=== PATIENT | female | born 1950 | race Caucasian/White ===

== ENCOUNTER 2017-08-19 09:35 | Inpatient (IN) | payer MEDICARE, BC ==
[2017-08-19] VITALS (15 sets, daily range): BP systolic 119–223; BP diastolic 43–93; PULSE 39–82; RESP 20–29; TEMP 98.6–98.9; O2SAT 89–96
[2017-08-19 10:07] LABS: AUTOMATED NEUTROPHIL # 10.8 TH/MM3 (1.8-7.7); BASOPHIL # 0.2 TH/MM3 (0-0.2); BASOPHIL % 1.1 % (0.0-2.0); EOSINOPHIL # 0.4 TH/MM3 (0-0.4); EOSINOPHIL % 2.3 % (0.0-4.0); HEMATOCRIT 39.6 % (35.0-46.0); HEMOGLOBIN 13.4 GM/DL (11.6-15.3); LYMPH % 19.3 % (9.0-44.0); MEAN CELL VOLUME 83.2 FL (80.0-100.0); MEAN CORPUSCULAR HEMOGLOBIN 28.3 PG (27.0-34.0); MEAN PLATELET VOLUME 8.5 FL (7.0-11.0); MONO % 6.2 % (0.0-8.0); NEUT % 71.1 % (16.0-70.0); PLATELET COUNT 241 TH/MM3 (150-450); RED BLOOD COUNT 4.76 MIL/MM3 (4.00-5.30); RED CELL DISTRIBUTION WIDTH 14.5 % (11.6-17.2); WHITE BLOOD COUNT 15.4 TH/MM3 (4.0-11.0)
--- NOTE | 2017-08-19 10:14 | RADRPT ---
EXAM DATE/TIME: 08/19/2017 10:01 [facility] COMPARISON: No previous studies available for comparison. INDICATIONS : Short of breath, cough MEDICAL HISTORY : Stroke. Chronic obstructive pulmonary disease. SURGICAL HISTORY : Cardiac valve replacement ENCOUNTER: Initial ACUITY: 1 week PAIN SCORE: 0/10 LOCATION: Bilateral chest FINDINGS: Bibasilar patchiness is noted consistent with atelectasis and/or infiltrates. Median sternotomy wires are noted status post cardiac surgery. The heart is minimally enlarged. CONCLUSION: Bibasilar patchiness consistent with atelectasis and/or infiltrates. Minimal cardiomegaly. Ronaldo Gutiérrez MD on August 19, 2017 at 10:10 Board Certified Radiologist. This report was verified electronically.
[2017-08-19 10:18] LABS: CHLORIDE 108 MEQ/L (98-107); SODIUM (NA) 142 MEQ/L (136-145)
[2017-08-19 10:21] LABS: CALCIUM 7.9 MG/DL (8.5-10.1)
[2017-08-19 10:22] LABS: ALBUMIN 3.2 GM/DL (3.4-5.0); BICARBONATE 24.4 MEQ/L (21.0-32.0); BLOOD UREA NITROGEN 21 MG/DL (7-18); GLUCOSE,RANDOM 117 MG/DL (74-106)
[2017-08-19 10:25] LABS: ALT (GPT) 62 U/L (10-53); AST (GOT) 81 U/L (15-37); CREATININE 0.99 MG/DL (0.50-1.00); GLOMERULAR FILTRATION RATE 56 ML/MIN (>89); PROTHROMBIN TIME - PATIENT 9.7 SEC (9.8-11.6)
[2017-08-19 10:26] LABS: TOTAL BILIRUBIN ADULT 0.4 MG/DL (0.2-1.0)
[2017-08-19 10:27] LABS: TOTAL PROTEIN 6.6 GM/DL (6.4-8.2)
[2017-08-19 10:28] LABS: ALKALINE PHOSPHATASE 79 U/L (45-117)
[2017-08-19 10:30] LABS: TROPONIN I 0.04 NG/ML (0.02-0.05)
[2017-08-19] MEDS ORDERED: LEVOFLOXACIN 500 MG PREMIX INJ 100 ML IV ONE (10:30)
[2017-08-19] MEDS ORDERED: methylPREDNISolone SOD SUCC 125 MG/2 ML VIAL IV PUSH ONE (10:30)
[2017-08-19] MEDS ORDERED: RESP: ALBUTEROL 2.5 MG/IPRATROPIUM 0.5 MG NEB (SCH) NEB ONE (10:30)
[2017-08-19 10:31] LABS: D-DIMER 1.81 MG/L FEU (0.00-0.50)
[2017-08-19] MEDS ORDERED: cloNIDine HCL 0.1 MG TAB PO ONE (10:45)
[2017-08-19] MEDS ORDERED: IOHEXOL 350 MG/ML 10 ML VIAL (for RAD DIAG) IVCONTRAST ONE (10:51)
--- NOTE | 2017-08-19 11:02 | RADRPT ---
EXAM DATE/TIME: 08/19/2017 10:34 [facility] COMPARISON: No previous studies available for comparison. INDICATIONS : Sudden onset shortness of breath. IV CONTRAST: 100 cc Omnipaque 350 (iohexol) IV RADIATION DOSE: 17.05 CTDIvol (mGy) MEDICAL HISTORY : Congestive hearrt failure. Hypertension. Bronchitis SURGICAL HISTORY : Heart bypass ENCOUNTER: Initial ACUITY: 1 day PAIN SCALE: 6/10 LOCATION: Bilateral chest TECHNIQUE: Volumetric scanning of the chest was performed using a pulmonary embolism protocol MIP images were re constructed. Using automated exposure control and adjustment of the mA and/or kV according to patien t size, radiation dose was kept as low as reasonably achievable to obtain optimal diagnostic quality images. DICOM format image data is available electronically for review and comparison. Follow-up recommendations for detected pulmonary nodules are based at a minimum on nodule size and pa tient risk factors according to Fleischner Society Guidelines. FINDINGS: PULMONARY ARTERIES: No filling defects are seen in the pulmonary arteries through the segmental level. LUNGS: Scattered tiny noncalcified nodular densities are noted to bilaterally consistent with true pulmonary nodules or reticulonodular infiltrates. The largest nodules noted on the right and measures 7 mm. Sc attered throughout it changes are noted bilaterally. Bibasilar compressive atelectasis is noted There is no pneumothorax . PLEURAE: Small bilateral pleural effusions are noted. MEDIASTINUM: There is good visualization of the great vessels of the middle mediastinum. No evidence of mediastin al or hilar adenopathy/mass. Cardiomegaly and coronary artery calcifications are noted. MUSCULOSKELETAL: Within normal limits for patient age. MISCELLANEOUS: The visualized upper abdominal organs demonstrate no acute abnormality. CONCLUSION: 1. No evidence of pulmonary embolism. 2. Scattered tiny noncalcified pulmonary nodules ranging in size from 3-7 mm suggestive of true pulmo nary nodules or reticulonodular infiltrates. Clinical correlation is recommended. 3. Small bilateral pleural effusions with adjacent compressive atelectasis. 4. Cardiomegaly and coronary artery calcifications. Ronaldo Gutiérrez MD on August 19, 2017 at 10:53 Board Certified Radiologist. This report was verified electronically.
[2017-08-19] MEDS ORDERED: FUROSEMIDE 20 MG/2 ML VIAL IV PUSH ONE (11:15)
--- NOTE | 2017-08-19 11:31 | PD ---
HPI Chief Complaint: Respiratory Distress Time Seen by Provider: 09:57 Travel History International Travel<30 days: No Contact w/Intl Traveler<30days: No Traveled to known affect area: No History of Present Illness HPI Patient presents for sudden onset of shortness of breath. Recently treated for bronchitis with a Z-Elias. States that in the last 1-2 weeks she has increased swelling in the right leg. Reports decreased urinary output. History of CHF, anxiety, COPD, hypertension and hypothyroidism. Denies nausea vomiting diarrhea or fever. No new rashes. History of valve replacement. Initial O2 sat of 85% on room air. PFSH Past Medical History AAA: Yes Anxiety: Yes Depression: Yes COPD: Yes Cerebrovascular Accident: Yes Deep Vein Thrombosis: Yes Hypertension: Yes Medical other: Yes (RHEUMATIC FEVER A CHILD, STREP, SEPSIS ) Thyroid Disease: Yes (GRAVES) Tetanus Vaccination: > 5 Years Influenza Vaccination: Yes ?: Not Menopausal: Yes Past Surgical History Abdominal Aneurysm Repair: Yes Abdominal Surgery: Yes (PARTIAL INTESTINE REMOVED) Appendectomy: Yes Cardiac Surgery: Yes ( BOVINE VALVE, BILATERAL FEMORAL ARTERY, ) Cholecystectomy: Yes Thoracic Surgery: Yes (AAA REPAIR) Social History Alcohol Use: Yes (RARELY) Tobacco Use: No Substance Use: No Allergies-Medications (Allergen,Severity, Reaction): Coded Allergies: Penicillins (Verified Allergy, Intermediate, 08/19/17) erythromycin base (Verified Allergy, Intermediate, 08/19/17) Review of Systems General / Constitutional: No: Fever Eyes: No: Visual changes HENT: No: Headaches Cardiovascular: No: Chest Pain or Discomfort Respiratory: Positive: Shortness of Breath Gastrointestinal: No: Abdominal Pain Genitourinary: No: Dysuria Musculoskeletal: No: Pain Skin: No Rash Neurologic: No: Weakness Psychiatric: No: Depression Endocrine: No: Polydipsia Hematologic/Lymphatic: No: Easy Bruising Physical Exam Narrative GENERAL: Well-nourished, well-developed patient. SKIN: Focused skin assessment warm/dry. HEAD: Normocephalic. EYES: No scleral icterus. No injection or drainage. NECK: Supple, trachea midline. No JVD or lymphadenopathy. CARDIOVASCULAR: Regular rate and rhythm without murmurs, gallops, or rubs. RESPIRATORY: Coarse crackles bilateral bases GASTROINTESTINAL: Abdomen soft, non-tender, nondistended. MUSCULOSKELETAL: No cyanosis, or edema. BACK: Nontender without obvious deformity. No CVA tenderness. Data Data Last Documented VS Vital Signs Date Time Temp Pulse Resp B/P (MAP) Pulse Ox O2 Delivery O2 Flow Rate FiO2 08/19/17 12:23 41 20 156/75 (102) 96 Nasal Cannula 3.00 08/19/17 09:42 98.6 Orders Orders Complete Blood Count With Diff (08/19/17 09:57) Comprehensive Metabolic Panel (08/19/17 09:57) B-Type Natriuretic Peptide (08/19/17 09:57) D-Dimer (08/19/17 09:57) Act Partial Throm Time (Ptt) (08/19/17 09:57) Prothrombin Time / Inr (Pt) (08/19/17 09:57) Ckmb (Isoenzyme) Profile (08/19/17 09:57) Troponin I (08/19/17 09:57) Influenzae A/B Antigen (08/19/17 09:57) Iv Access Insert/Monitor (08/19/17 09:57) Electrocardiogram (08/19/17 09:57) Ecg Monitoring (08/19/17 09:57) Oximetry (08/19/17 09:57) Oxygen Administration (08/19/17 09:57) Chest, Single Ap (08/19/17 09:57) Ct Pulmonary Angiogram (08/19/17 09:57) Methylprednisolone So Succ Inj (Solumedr (08/19/17 10:30) Levofloxacin 500 Mg Premix Inj (Levaquin (08/19/17 10:30) Albuterol-Ipratropium Neb (Duoneb Neb) (08/19/17 10:30) Clonidine (Catapres) (08/19/17 10:45) Furosemide Inj (Lasix Inj) (08/19/17 11:15) Iohexol 350 Inj (Omnipaque 350 Inj) (08/19/17 10:51) Aspirin (Aspirin) (08/19/17 12:45) Influenzae A/B Antigen (08/19/17 12:43) Place In Observation (08/19/17 ) Vital Signs (Adult) Q4H (08/19/17 12:48) Activity Oob With Assistance (08/19/17 12:48) Inspector Government Property / Telemetry .CONTINUOUS (08/19/17 12:48) Intake + Output JOSE GUADALUPE.QSHIFT (08/19/17 12:48) Diet Heart Healthy (08/19/17 Lunch) Sodium Chloride 0.9% Flush (Ns Flush) (08/19/17 13:00) Sodium Chloride 0.9% Flush (Ns Flush) (08/19/17 21:00) Acetaminophen (Tylenol) (08/19/17 13:00) Ondansetron Inj (Zofran Inj) (08/19/17 13:00) Basic Metabolic Panel (Bmp) (08/20/17 06:00) Complete Blood Count With Diff (08/20/17 06:00) Resp Oxygen Hector C Titrat 1-4 L (08/19/17 ) Vte Prophylaxis Not Indicated (08/19/17 12:48) Scd Bilateral/Knee High JOSE GUADALUPE.BID (08/19/17 12:48) Naloxone Inj (Narcan Inj) (08/19/17 13:00) Docusate Sodium-Senna (Madison-Colace) (08/19/17 21:00) Magnesium Hydroxide Liq (Milk Of Magnesi (08/19/17 13:00) Sennosides (Senokot) (08/19/17 13:00) Bisacodyl Supp (Dulcolax Supp) (08/19/17 13:00) Methylprednisolone So Succ Inj (Solumedr (08/19/17 18:00) Levofloxacin 750 Mg Premix Inj (Levaquin (08/19/17 14:00) Albuterol-Ipratropium Neb (Duoneb Neb) (08/19/17 14:00) Albuterol-Ipratropium Neb (Duoneb Neb) (08/19/17 13:00) Furosemide Inj (Lasix Inj) (08/20/17 09:00) Admit Order (Ed Use Only) (08/19/17 ) Inspector Government Property / Telemetry JOSE GUADALUPE.Q8H (08/19/17 13:08) Vital Signs (Adult) Q4H (08/19/17 13:08) Activity Oob With Assistance (08/19/17 13:08) Notify Dr: Other (08/19/17 13:08) Labs Laboratory Tests Test 08/19/17 10:00 White Blood Count 15.4 TH/MM3 Red Blood Count 4.76 MIL/MM3 Hemoglobin 13.4 GM/DL Hematocrit 39.6 % Mean Corpuscular Volume 83.2 FL Mean Corpuscular Hemoglobin 28.3 PG Mean Corpuscular Hemoglobin Concent 34.0 % Red Cell Distribution Width 14.5 % Platelet Count 241 TH/MM3 Mean Platelet Volume 8.5 FL Neutrophils (%) (Auto) 71.1 % Lymphocytes (%) (Auto) 19.3 % Monocytes (%) (Auto) 6.2 % Eosinophils (%) (Auto) 2.3 % Basophils (%) (Auto) 1.1 % Neutrophils # (Auto) 10.8 TH/MM3 Lymphocytes # (Auto) 3.0 TH/MM3 Monocytes # (Auto) 1.0 TH/MM3 Eosinophils # (Auto) 0.4 TH/MM3 Basophils # (Auto) 0.2 TH/MM3 CBC Comment DIFF FINAL Differential Comment Prothrombin Time 9.7 SEC Prothromb Time International Ratio 1.0 RATIO Activated Partial Thromboplast Time 24.3 SEC D-Dimer Quantitative (PE/DVT) 1.81 MG/L FEU Blood Urea Nitrogen 21 MG/DL Creatinine 0.99 MG/DL Random Glucose 117 MG/DL Total Protein 6.6 GM/DL Albumin 3.2 GM/DL Calcium Level 7.9 MG/DL Alkaline Phosphatase 79 U/L Aspartate Amino Transf (AST/SGOT) 81 U/L Alanine Aminotransferase (ALT/SGPT) 62 U/L Total Bilirubin 0.4 MG/DL Sodium Level 142 MEQ/L Potassium Level 3.9 MEQ/L Chloride Level 108 MEQ/L Carbon Dioxide Level 24.4 MEQ/L Anion Gap 10 MEQ/L Estimat Glomerular Filtration Rate 56 ML/MIN Total Creatine Kinase 91 U/L Troponin I 0.04 NG/ML B-Type Natriuretic Peptide 533 PG/ML [facility] Medical Decision Making Medical Screen Exam Complete: Yes Emergency Medical Condition: Yes Differential Diagnosis CHF exacerbation, COPD exacerbation, pneumonia, hypoxia, dyspnea Narrative Course Assessment and plan discussed with patient and family at bedside. Labs reveal an elevated white count with mildly elevated BNP. EKG revealed sinus bradycardia rate in the upper 40s. No previous EKG to compare. Patient reports that this is new. CTA revealed 1. No evidence of pulmonary embolism. 2. Scattered tiny noncalcified pulmonary nodules ranging in size from 3-7 mm suggestive of true pulmonary nodules or reticulonodular infiltrates. Clinical correlation is recommended. 3. Small bilateral pleural effusions with adjacent compressive atelectasis. 4. Cardiomegaly and coronary artery calcifications. Chest x-ray revealed Bibasilar patchiness consistent with atelectasis and/or infiltrates. Minimal cardiomegaly. Physician Communication Physician Communication Spoke with Dr Cabrera who is in agreement will admit Diagnosis Primary Impression: CHF exacerbation Qualified Codes: I50.9 - Heart failure, unspecified Additional Impression: Leukocytosis Qualified Codes: D72.829 - Elevated white blood cell count, unspecified Admitting Information Admitting Physician Requests: Admit Arturo Fraga MD Aug 19, 2017 11:31
[2017-08-19] MEDS ORDERED: ASPIRIN 325 MG TAB PO ONE (12:45)
[2017-08-19] MEDS ORDERED: BISACODYL 10 MG SUPP RECTAL PRN (13:00)
[2017-08-19] MEDS ORDERED: ONDANSETRON HCL 4 MG/2 ML VIAL IVP PRN (13:00)
[2017-08-19] MEDS ORDERED: SENNOSIDES 8.6 MG TAB PO PRN (13:00)
[2017-08-19] MEDS ORDERED: NALOXONE HCL 0.4 MG/ML AMP IV PUSH PRN (13:00)
[2017-08-19] MEDS ORDERED: MAGNESIUM HYDROXIDE SUSP 30 ML CUP PO PRN (13:00)
--- NOTE | 2017-08-19 13:03 | HHI.HP ---
[facility] [place] [facility] Primary Care Physician No Primary Care Physician Admission Diagnosis Diagnoses: (1) CHF exacerbation (2) Hypertension (3) Bradycardia Chief Complaint: Dyspnea Lower extremity edema Travel History International Travel<30 Days: No Contact w/Intl Traveler <30 Da: No Traveled to Known Affected Are: No History of Present Illness This is a 66-year-old female patient with a known medical history of AAA, hypertension, COPD and history of DVT who presented to the ED with complaints of worsening shortness of breath and worsening right lower extremity edema. Patient states that roughly 1 week ago she began to notice increasing swelling in her right leg and worsening abdominal distention. She states that last Monday she visited her primary care doctor due to these complaints and was given antibiotics and prednisone, which was finished yesterday. Despite these medications patient has continued shortness of breath and cough. Patient does admit to history of CHF and on Lasix 40 mg daily. It should be noted that patient did travel from [place] via airplane last week and with continued complaint of right lower extremity swelling. Patient denies any recent illness including fever, chills, abdominal pain, nausea, vomiting or diarrhea. She does state that she has a history of AAA repair and bovine valve replacement. She also has a history of left upper extremity DVT. Currently takes Plavix. On presentation patient is on nasal cannula 3 L, with noted accessory muscle use , right lower extremity swelling and abdominal distention. Patient is sinus bradycardia on the monitor with heart rate in the 40s, denies any history of low heart rate. Review of Systems Constitutional: DENIES: Diaphoretic episodes, Fever, Chills Eyes: DENIES: Blurred vision, Diplopia Respiratory: COMPLAINS OF: Cough, Shortness of breath, DENIES: Sputum production Cardiovascular: DENIES: Chest pain, Palpitations Gastrointestinal: DENIES: Abdominal pain, Black stools, Bloody stools, Constipation, Diarrhea, Nausea, Vomiting Musculoskeletal: DENIES: Joint pain Integumentary: DENIES: Abnormal pigmentation Psychiatric: DENIES: Anxiety Except as stated in HPI: all other systems reviewed are Neg Right lower extremity swelling. Abdominal distention. Past Family Social History Past Medical History History of AAA Anxiety and depression COPD History of tobacco abuse History of CVA in 2016 Hypertension History of left upper extremity DVT History of rheumatic fever as a child Graves' disease Dyslipidemia Past Surgical History Right carotid endarterectomy Partial intestine removal AAA repair Appendectomy Bilateral femoral artery bypass Bovine valve replacement Cholecystectomy Reported Medications Please see list. Allergies: Coded Allergies: Penicillins (Verified Allergy, Intermediate, 08/19/17) erythromycin base (Verified Allergy, Intermediate, 08/19/17) Active Ordered Medications Current Medications Medications (Trade) Dose Ordered Sig/Azeb Route Start Time Stop Time Status Last Admin (NS Flush) 2 ml UNSCH PRN IV FLUSH 08/19/17 13:00 (NS Flush) 2 ml BID IV FLUSH 08/19/17 21:00 (Tylenol) 650 mg Q4H PRN PO 08/19/17 13:00 (Zofran Inj) 4 mg Q6H PRN IVP 08/19/17 13:00 (Narcan Inj) 0.4 mg UNSCH PRN IV PUSH 08/19/17 13:00 (Madison-Colace) 1 tab BID PO 08/19/17 21:00 (Milk Of Magnesia Liq) 30 ml Q12H PRN PO 08/19/17 13:00 (Senokot) 17.2 mg Q12H PRN PO 08/19/17 13:00 (Dulcolax Supp) 10 mg DAILY PRN RECTAL 08/19/17 13:00 (SoluMEDROL INJ) 40 mg Q6HR IV PUSH 08/19/17 18:00 Levofloxacin/ Dextrose 150 ml @ 100 mls/hr Q24H IV 08/19/17 14:00 (Duoneb Neb) 1 ampule Q6HR WHILE AWAKE NEB NEB 08/19/17 14:00 (Duoneb Neb) 1 ampule Q2HR NEB PRN NEB 08/19/17 13:00 (Lasix Inj) 20 mg DAILY IV PUSH 08/20/17 09:00 Family History Paternal medical history significant for hypertension. Maternal medical history significant for PPD. Social History Patient does admit to a history of smoking, states she quit at the age of 59, prior to that she smoked 1 pack per day since her teen years. Admit to rare alcohol use. Denies any illicit drug use. Physical Exam Vital Signs Vital Signs Date Time Temp Pulse Resp B/P (MAP) Pulse Ox O2 Delivery O2 Flow Rate FiO2 08/19/17 12:23 41 20 156/75 (102) 96 Nasal Cannula 3.00 08/19/17 10:01 Nasal Cannula 3.00 08/19/17 10:01 95 Nasal Cannula 3.00 08/19/17 09:42 98.6 48 22 223/78 (126) 89 Physical Exam GENERAL: Well-developed, well-nourished patient on 3 L nasal cannula with apparent accessory muscle use. Speech is clear but minimal due to shortness of breath. SKIN: Warm and dry. Multiple scars on bilateral upper extremities. Abdominal scarring noted from prior surgeries. HEAD: Normocephalic. Atraumatic. EYES: Pupils equal and round. No scleral icterus. No injection or drainage. ENT: No nasal bleeding or discharge. Mucous membranes pink and moist. NECK: Supple. Trachea midline. CARDIOVASCULAR: Sinus bradycardia S1, S2 noted. 2 out of 6 systolic murmur RESPIRATORY: No accessory muscle use. Clear to auscultation. Breath sounds equal bilaterally. GASTROINTESTINAL: Abdomen round and distended. Hypoactive bowel sounds x4. MUSCULOSKELETAL: No obvious deformities. Extremities without clubbing, cyanosis , or edema. NEUROLOGICAL: Awake and alert. No obvious cranial nerve deficits. Motor grossly within normal limits. 5/5 muscle strength in bilateral upper and lower extremities. Normal speech. PSYCHIATRIC: Appropriate mood and affect; insight and judgment normal. Laboratory Laboratory Tests Test 08/19/17 10:00 White Blood Count 15.4 Red Blood Count 4.76 Hemoglobin 13.4 Hematocrit 39.6 Mean Corpuscular Volume 83.2 Mean Corpuscular Hemoglobin 28.3 Mean Corpuscular Hemoglobin Concent 34.0 Red Cell Distribution Width 14.5 Platelet Count 241 Mean Platelet Volume 8.5 Neutrophils (%) (Auto) 71.1 Lymphocytes (%) (Auto) 19.3 Monocytes (%) (Auto) 6.2 Eosinophils (%) (Auto) 2.3 Basophils (%) (Auto) 1.1 Neutrophils # (Auto) 10.8 Lymphocytes # (Auto) 3.0 Monocytes # (Auto) 1.0 Eosinophils # (Auto) 0.4 Basophils # (Auto) 0.2 CBC Comment DIFF FINAL Differential Comment Prothrombin Time 9.7 Prothromb Time International Ratio 1.0 Activated Partial Thromboplast Time 24.3 D-Dimer Quantitative (PE/DVT) 1.81 Blood Urea Nitrogen 21 Creatinine 0.99 Random Glucose 117 Total Protein 6.6 Albumin 3.2 Calcium Level 7.9 Alkaline Phosphatase 79 Aspartate Amino Transf (AST/SGOT) 81 Alanine Aminotransferase (ALT/SGPT) 62 Total Bilirubin 0.4 Sodium Level 142 Potassium Level 3.9 Chloride Level 108 Carbon Dioxide Level 24.4 Anion Gap 10 Estimat Glomerular Filtration Rate 56 Total Creatine Kinase 91 Troponin I 0.04 B-Type Natriuretic Peptide 533 Date/Time Source Procedure Growth Status 08/19/17 10:10 Nasal Aspirate Influenza Types A,B Antigen (ROM) - Final NEGATIVE FOR FLU A AND B ANTIGEN.... Complete Result Diagram: 08/19/17 1000 08/19/17 1000 Septic Shock Reassessment Septic shock perfusion: reassessment completed Caprini VTE Risk Assessment Caprini VTE Risk Assessment: Mod/High Risk (score >= 2) Caprini Risk Assessment Model Point Value = 1 Point Value = 2 Point Value = 3 Point Value = 5 Age 41-60 Minor surgery BMI > 25 kg/m2 Swollen legs Varicose veins or History of unexplained or recurrent spontaneous Oral contraceptives or hormone replacement Sepsis (< 1 month) Serious lung disease, including pneumonia (< 1 month) Abnormal pulmonary function Acute myocardial infarction Congestive heart failure (< 1 month) History of inflammatory bowel disease Medical patient at bed rest Age 61-74 Arthroscopic surgery Major open surgery (> 45 min) Laparoscopic surgery (> 45 min) Malignancy Confined to bed (> 72 hours) Immobilizing plaster cast Central venous access Age >= 75 History of VTE Family history of VTE Factor V Leiden Prothrombin [id number] Lupus anticoagulant Anticardiolipin antibodies Elevated serum homocysteine Heparin-induced thrombocytopenia Other congenital or acquired thrombophilia Stroke (< 1 month) Elective arthroplasty Hip, pelvis, or leg fracture Acute spinal cord injury (< 1 month) Prophylaxis Regimen Total Risk Factor Score Risk Level Prophylaxis Regimen 0-1 Low Early ambulation 2 Moderate Order ONE of the following: *Sequential Compression Device (SCD) *Heparin 5000 units SQ BID 3-4 Higher Order ONE of the following medications: *Heparin 5000 units SQ TID *Enoxaparin/Lovenox 40 mg SQ daily (WT < 150 kg, CrCl > 30 mL/min) *Enoxaparin/Lovenox 30 mg SQ daily (WT < 150 kg, CrCl > 10-29 mL/min) *Enoxaparin/Lovenox 30 mg SQ BID (WT < 150 kg, CrCl > 30 mL/min) AND/OR *Sequential Compression Device (SCD) 5 or more Highest Order ONE of the following medications: *Heparin 5000 units SQ TID (Preferred with Epidurals) *Enoxaparin/Lovenox 40 mg SQ daily (WT < 150 kg, CrCl > 30 mL/min) *Enoxaparin/Lovenox 30 mg SQ daily (WT < 150 kg, CrCl > 10-29 mL/min) *Enoxaparin/Lovenox 30 mg SQ BID (WT < 150 kg, CrCl > 30 mL/min) AND *Sequential Compression Device (SCD) Assessment and Plan Problem List: (1) CHF exacerbation ICD Code: I50.9 - Heart failure, unspecified Status: Acute Plan: BNP 533. Given 20 mg IV push in ED. Placed on Lasix 40 mg IV daily. Monitor intake and output closely. Follow clinically. Will obtain an echocardiogram, will follow. (2) COPD with acute exacerbation ICD Code: J44.1 - Chronic obstructive pulmonary disease with (acute) exacerbation Plan: Failed outpatient treatment. Patient admits to completing a azithromycin pack yesterday with supplemental steroids. Patient with leukocytosis, white blood cell 15,000 this is suspect secondary to recent steroid use. We will continue to monitor CBC, monitor for infection, afebrile. Was given Levaquin in the ED. Will continue. Also given Solu-Medrol 125 mg IV push in ED. Continue on scheduled steroids. Duo nebs as needed and scheduled. Supplemental O2 as needed, keep saturations above 92%. D-dimer elevated, chest CTA obtained and reviewed showing no evidence of PE. There are scattered tiny noncalcified pulmonary nodules. Patient states that she is aware of these nodules and has been followed with her primary care doctor. She was told that these were benign. Small bilateral pleural effusions with adjacent compressive atelectasis found. Monitor. (3) Bradycardia ICD Code: R00.1 - Bradycardia, unspecified Plan: Heart rate in the 40s. Patient denies any history of bradycardia nor on any beta-blockers at home. Patient is asymptomatic at this time. Denies any chest pain. We will continue to monitor closely. Consult cardiology, appreciate input recommendations. Given aspirin in ED. Will avoid any beta- blockers. (4) Hypertension ICD Code: I10 - Essential (primary) hypertension Plan: Blood pressure significantly elevated in ED. Given one-time dose of clonidine in ED. Assess BP trends. Now stabilized. DVT prophylaxis: SCDs. Heparin. Problem Qualifiers (1) CHF exacerbation: Qualified Codes: I50.9 - Heart failure, unspecified Myra Jimenez Aug 19, 2017 13:03
[2017-08-19] MEDS: LEVOFLOXACIN 750 MG PREMIX INJ 150 ML IV SCH (14:00)
[2017-08-19] MEDS: RESP: ALBUTEROL 2.5 MG/IPRATROPIUM 0.5 MG NEB (SCH) NEB ×2 (14:00→17:40)
--- NOTE | 2017-08-19 15:01 | RADRPT ---
EXAM DATE/TIME: 08/19/2017 13:59 [facility] COMPARISON: No previous studies available for comparison. INDICATIONS : Swelling. MEDICAL HISTORY : Grave's disease. cva. aaa. htn. dvt. copd. SURGICAL HISTORY : Appendectomy.Cholecystectomy. AAA repair. Partian intestine removed. Cardiac surgery. ENCOUNTER: Initial ACUITY: 1 day PAIN SCORE: 3/10 LOCATION: Bilateral leg. TECHNIQUE: Venous ultrasound of the left and right leg was performed from the inguinal ligament to the proximal calf. Real-time, color Doppler and spectral tracing, compression and augmentation techniques were us ed. FINDINGS: RIGHT LEG: There is normal compressibility of the deep venous system from the inguinal region to the proximal ca lf. No echogenic clot is seen in the lumen of the common femoral, femoral, popliteal, and posterior tibial veins. There is a normal response of the venous system to proximal and distal augmentation an d respiration. LEFT LEG: There is normal compressibility of the deep venous system from the inguinal region to the proximal ca lf. No echogenic clot is seen in the lumen of the common femoral, femoral, popliteal, and posterior tibial veins. There is a normal response of the venous system to proximal and distal augmentation an d respiration. CONCLUSION: No DVT. Terry Liriano MD on August 19, 2017 at 14:57 Board Certified Radiologist. This report was verified electronically.
--- NOTE | 2017-08-19 15:11 | RADRPT ---
EXAM DATE/TIME: 08/19/2017 14:29 CORRECTION Corrected on: August 19, 2017; [facility] COMPARISON: No previous studies available for comparison. INDICATIONS : Abdomen distension MEDICAL HISTORY : Stroke. Chronic obstructive pulmonary disease. SURGICAL HISTORY : cardiac valve replacement ENCOUNTER: Initial ACUITY: 1 week PAIN SCORE: 5/10 LOCATION: Bilateral abdomen FINDINGS: Supine view of the abdomen was performed. Air seen within mildly distended small bowel. There is some air within the colon. Vascular stents are seen at the common iliac regions. Clips are seen over the midline in the midabdomen. Contrast is seen within the urinary bladder. CONCLUSION: Mildly distended small bowel. Terry Liriano MD on August 19, 2017 at 15:07 Board Certified Radiologist. This report was verified electronically. Terry Liriano MD on August 19, 2017 at 15:12 Board Certified Radiologist. This report was verified electronically.
[2017-08-19] MEDS ORDERED: PROM6.256 PO (15:35)
[2017-08-19] MEDS ORDERED: ALPR0.5T3 PO (15:35)
[2017-08-19] MEDS ORDERED: FURO20TA PO (15:35)
[2017-08-19] MEDS ORDERED: IPRAAER INH (15:35)
[2017-08-19] MEDS ORDERED: FLUO40CA PO (15:35)
[2017-08-19] MEDS ORDERED: B-12100T PO (15:35)
[2017-08-19] MEDS ORDERED: LOSA100T PO (15:35)
[2017-08-19] MEDS ORDERED: CLOP75TA PO (15:35)
[2017-08-19] MEDS ORDERED: CYAN100025 SL (15:35)
[2017-08-19] MEDS ORDERED: D200CAP PO (15:35)
[2017-08-19] MEDS ORDERED: OMEG1CAP28 PO (15:35)
[2017-08-19] MEDS ORDERED: ADVA250A INH (15:35)
[2017-08-19] MEDS: methylPREDNISolone SOD SUCC 40 MG/1 ML VIAL IV PUSH SCH ×2 (18:48→23:22)
--- NOTE | 2017-08-19 19:22 | EKG ---
Date Performed: 08/19/2017 Time Performed: 10:11:38 PTAGE: 66 years EKG: SINUS BRADYCARDIA WITH 2ND DEGREE AV BLOCK, MOBITZ TYPE II POSSIBLE RIGHT VENTRICULAR CONDU CTION DELAY ST DEVIATION AND MODERATE T-WAVE ABNORMALITY, CONSIDER LATERAL ISCHEMIA ABNORMAL ECG NO PREVIOUS TRACING DOCTOR: Jodi Gaspar Interpretating Date/Time 08/19/2017 19:19:21
[2017-08-19] MEDS ORDERED: ACETAMINOPHEN 325 MG TAB PO PRN (19:30)
--- NOTE | 2017-08-19 20:00 | MB ---
cc: Freddie Ramachandran MD DATE: 08/19/2017 REASON FOR CONSULTATION: Bradycardia and shortness of breath. HISTORY OF PRESENT ILLNESS: This is a pleasant 66-year-old woman with a history of aortic valve replacement, peripheral arterial disease, normal ejection fraction and congestive heart failure, but no coronary disease per the patient, she is managed in [place]. The patient has presented with worsening shortness of breath and some lower extremity edema. In the emergency department, she was found to have sinus bradycardia about 40 while at rest, which the patient says is very unusual for her. She is currently getting a breathing treatment, but does admit to current shortness of breath. No chest pain, lightheadedness, dizziness or syncope. PAST MEDICAL HISTORY: AAA, hypertension, COPD, DVT, CVA, rheumatic fever, and hyperlipidemia. CURRENT MEDICATIONS: 1. Lasix 40 mg IV daily. 2. Levaquin. ALLERGIES: 1. PENICILLIN. 2. ERYTHROMYCIN. PHYSICAL EXAMINATION: VITAL SIGNS: Afebrile, pulse 48, respiratory rate 22, blood pressure initially 223/78 down to 139/44, saturating 95 on 3 liters. GENERAL: Pleasant, obese woman, who does admit to some anxiety, in no distress. NECK: No JVD. LUNGS: Clear to auscultation bilaterally. CARDIOVASCULAR: Bradycardic, but regular. No murmurs appreciated. ABDOMEN: Benign. EXTREMITIES: Trace edema bilaterally. LABORATORY DATA: White count 15.4, hematocrit 39.6, platelets 241. Sodium 142, potassium 3.9, chloride 100, bicarbonate 24.4, BUN 21, creatinine 0.99, glucose 117. DIAGNOSTIC STUDIES: EKG showed a marked sinus bradycardia at 40. Current telemetry shows sinus bradycardia with occasional ventricular bigeminy. CTA was negative for pulmonary embolus. Lower extremity ultrasound was negative for DVT. IMPRESSION AND PLAN: 1. Shortness of breath. The patient may be having a mild congestive heart failure exacerbation, likely due to significant diastolic dysfunction as her blood pressure was very elevated on presentation. I will give her an extra shot of Lasix tonight. An echocardiogram will be ordered. 2. Bradycardia. The patient seems to have asymptomatic sinus bradycardia while at rest. We will have the patient ambulate with nursing assistance and her heart rate can be documented to see if has a reasonable increase in her heart rate with activity. Further recommendations will be based on the clinical course. Thank you again for the opportunity to participate in this patient's care. MD CATY Kam/JEANCARLOS , 05:57 PM , 07:59 PM
[2017-08-19] MEDS: DOCUSATE SODIUM 50 MG/SENNA 8.6 MG TAB PO SCH (20:56)
[2017-08-19] MEDS: ALPRAZolam 0.5 MG TAB PO PRN (20:56)
[2017-08-19] MEDS: HEPARIN SODIUM - SQ 10,000 UNITS/ML VIAL SQ SCH (20:56)
[2017-08-19] MEDS: SODIUM CHLORIDE 0.9% FLUSH 10 ML FLUSH IV FLUSH SCH (20:57)
[2017-08-19] MEDS: ACETAMINOPHEN 325 MG TAB PO PRN (20:57)
[2017-08-19] MEDS: FLUoxetine HCL 20 MG CAP PO SCH (20:58)
[2017-08-19] MEDS ORDERED: NON-FORMULARY DRUG (Ipratropium-Albuterol Inh (Combivent Respimat Inh) 1 PUFF) INH SCH (21:00)
[2017-08-19] MEDS ORDERED: FLUoxetine HCL 20 MG CAP PO SCH (21:00)
[2017-08-19] MEDS ORDERED: NON-FORMULARY DRUG (Fluticasone-Salmeterol Inh (Advair Diskus Inh) 1 PUFF) INH SCH (21:00)
[2017-08-19] MEDS: ALBUTEROL SULFATE 90 MCG/ACT HFA 8 GM INHALER INH SCH (21:19)
[2017-08-19] MEDS: BUDESONIDE-FORMOTEROL 160/4.5 MCG INHALER INH SCH (21:19)
[2017-08-20] VITALS (29 sets, daily range): BP systolic 58–154; BP diastolic 46–79; PULSE 37–99; RESP 21–39; TEMP 97.5–98.1; O2SAT 94–97
[2017-08-20] MEDS: methylPREDNISolone SOD SUCC 40 MG/1 ML VIAL IV PUSH SCH ×4 (05:43→23:27)
[2017-08-20 06:09] LABS: AUTOMATED NEUTROPHIL # 20.4 TH/MM3 (1.8-7.7); BASOPHIL # 0.2 TH/MM3 (0-0.2); BASOPHIL % 0.9 % (0.0-2.0); EOSINOPHIL % 0.1 % (0.0-4.0); HEMATOCRIT 34.3 % (35.0-46.0); HEMOGLOBIN 11.8 GM/DL (11.6-15.3); LYMPH % 5.4 % (9.0-44.0); LYMPHOCYTE # 1.2 TH/MM3 (1.0-4.8); MEAN CELL VOLUME 83.6 FL (80.0-100.0); MEAN CORPUSCULAR HEMOGLOBIN 28.9 PG (27.0-34.0); MEAN CORPUSCULAR HGB CONC 34.6 % (32.0-36.0); MEAN PLATELET VOLUME 9.1 FL (7.0-11.0); MONO % 0.8 % (0.0-8.0); MONOCYTE # 0.2 TH/MM3 (0-0.9); NEUT % 92.8 % (16.0-70.0); PLATELET COUNT 191 TH/MM3 (150-450); RED CELL DISTRIBUTION WIDTH 14.8 % (11.6-17.2)
[2017-08-20 06:27] LABS: BICARBONATE 25.4 MEQ/L (21.0-32.0); CALCIUM 8.2 MG/DL (8.5-10.1)
[2017-08-20 06:31] LABS: CREATININE 1.1 MG/DL (0.50-1.00)
[2017-08-20] MEDS: RESP: ALBUTEROL 2.5 MG/IPRATROPIUM 0.5 MG NEB (SCH) NEB ×3 (07:42→19:25)
--- NOTE | 2017-08-20 07:45 | HHI.PR ---
Subjective Remarks Follow-up CHF exacerbation, COPD exacerbation and bradycardia. Patient seen and examined, sister at bedside, patient is lying in bed on continued 3 LNC, still with dyspnea and some accessory muscle use. Patient does not feel improved. Still complaint of continued lower extremity swelling. Pulmonology consulted. Still bradycardic. Continue IV Lasix. Has been out of bed ambulating to commode , HR increases to the 50's with activity. Afebrile. Objective Vitals Vital Signs Date Time Temp Pulse Resp B/P (MAP) Pulse Ox O2 Delivery O2 Flow Rate FiO2 08/20/17 06:00 43 08/20/17 05:00 38 08/20/17 04:00 97.5 38 21 144/71 (95) 94 08/20/17 04:00 43 08/20/17 03:00 37 08/20/17 02:00 43 08/20/17 01:00 38 08/20/17 00:00 97.6 43 21 137/62 (87) 95 08/20/17 00:00 43 08/19/17 23:00 44 08/19/17 22:00 46 08/19/17 21:57 12 08/19/17 21:00 43 08/19/17 20:01 98.9 42 29 119/43 (68) 94 08/19/17 20:00 93 Nasal Cannula 3.00 08/19/17 20:00 46 08/19/17 19:00 47 08/19/17 18:00 40 08/19/17 16:00 40 08/19/17 15:36 08/19/17 15:06 56 20 139/44 (75) 95 Nasal Cannula 3.00 08/19/17 14:00 44 08/19/17 13:57 39 22 129/81 (97) 95 Nasal Cannula 3.00 08/19/17 12:23 41 20 156/75 (102) 96 Nasal Cannula 3.00 08/19/17 10:01 Nasal Cannula 3.00 08/19/17 10:01 95 Nasal Cannula 3.00 08/19/17 09:42 98.6 48 22 223/78 (126) 89 I/O 08/19/17 08/19/17 08/19/17 08/20/17 08/20/17 08/20/17 07:00 15:00 23:00 07:00 15:00 23:00 Intake Total 100 ml 250 ml 360 ml Output Total 700 ml Balance 100 ml 250 ml -340 ml Intake Oral 250 ml 360 ml IV Total 100 ml Output Urine Total 700 ml # Voids 1 # Bowel Movements 0 Result Diagram: 08/20/1753908/20/17539 Objective Remarks GENERAL: Well-developed, well-nourished patient on 3 L nasal cannula with apparent accessory muscle use. Speech is clear but minimal due to shortness of breath. SKIN: Warm and dry. Multiple scars on bilateral upper extremities. Abdominal scarring noted from prior surgeries. HEAD: Normocephalic. Atraumatic. EYES: Pupils equal and round. No scleral icterus. No injection or drainage. ENT: No nasal bleeding or discharge. Mucous membranes pink and moist. NECK: Supple. Trachea midline. CARDIOVASCULAR: Sinus bradycardia S1, S2 noted. 2 out of 6 systolic murmur RESPIRATORY: No accessory muscle use. Clear to auscultation. Breath sounds equal bilaterally. GASTROINTESTINAL: Abdomen round and distended. Hypoactive bowel sounds x4. MUSCULOSKELETAL: No obvious deformities. Extremities without clubbing, cyanosis , or edema. NEUROLOGICAL: Awake and alert. No obvious cranial nerve deficits. Motor grossly within normal limits. 5/5 muscle strength in bilateral upper and lower extremities. Normal speech. PSYCHIATRIC: Appropriate mood and affect; insight and judgment normal. A/P Problem List: (1) CHF exacerbation ICD Code: I50.9 - Heart failure, unspecified Status: Acute Plan: BNP 533. Given 20 mg IV push in ED. Placed on Lasix 40 mg IV daily. Additional dose last evening. Monitor intake and output closely. Follow clinically. Echocardiogram reviewed, hyperdynamic EF 70%. (2) COPD with acute exacerbation ICD Code: J44.1 - Chronic obstructive pulmonary disease with (acute) exacerbation Plan: Failed outpatient treatment. Patient admits to completing a azithromycin pack prior to admission with supplemental steroids. Patient with leukocytosis, white blood cell 15,000 this is suspect secondary to recent steroid use. We will continue to monitor CBC, monitor for infection, afebrile. Was given Levaquin in the ED. Will continue. Also given Solu-Medrol 125 mg IV push in ED. Continue on scheduled steroids. Duo nebs as needed and scheduled. Supplemental O2 as needed, keep saturations above 92%. Still requiring 3 L nasal cannula. D-dimer elevated, chest CTA obtained and reviewed showing no evidence of PE. There are scattered tiny noncalcified pulmonary nodules. Patient states that she is aware of these nodules and has been followed with her primary care doctor. Records requested, follow. She was told that these were benign. Small bilateral pleural effusions with adjacent compressive atelectasis found. Pulmonology consulted, appreciate input recommendations. ABG today. Will obtain sputum cultures. CXR ordered for am. (3) Bradycardia ICD Code: R00.1 - Bradycardia, unspecified Plan: Heart rate in the 40s. Patient denies any history of bradycardia nor on any beta-blockers at home. Patient is asymptomatic at this time. Denies any chest pain. EKG reviewed showing sinus bradycardia with second-degree heart block. We will continue to monitor closely. Consult cardiology, appreciate input recommendations. No further recommendations. Given aspirin in ED. Will avoid any beta-blockers. When patient gets out of bed, heart rate is in the 50s. (4) Hypertension ICD Code: I10 - Essential (primary) hypertension Plan: Blood pressure significantly elevated in ED. Given one-time dose of clonidine in ED. Assess BP trends. Now stabilized. DVT prophylaxis: SCDs. Heparin. Problem Qualifiers (1) CHF exacerbation: Qualified Codes: I50.9 - Heart failure, unspecified Myra Jimenez Aug 20, 2017 07:45
[2017-08-20] MEDS ORDERED: FUROSEMIDE 20 MG/2 ML VIAL IV PUSH SCH (09:00)
[2017-08-20] MEDS: TIOTROPIUM BROMIDE 18 MCG INH INH SCH (09:00)
[2017-08-20] MEDS: guaiFENesin E.R. 600 MG TAB PO SCH ×2 (09:15→20:54)
[2017-08-20] MEDS: CLOPIDOGREL 75 MG TAB PO SCH (09:55)
[2017-08-20] MEDS: LOSARTAN 50 MG TAB PO SCH (09:55)
[2017-08-20] MEDS: DOCUSATE SODIUM 50 MG/SENNA 8.6 MG TAB PO SCH ×2 (09:55→20:53)
[2017-08-20] MEDS: ALPRAZolam 0.5 MG TAB PO PRN ×2 (09:55→20:53)
[2017-08-20] MEDS: FLUoxetine HCL 20 MG CAP PO SCH ×2 (09:55→20:54)
[2017-08-20] MEDS: ALBUTEROL SULFATE 90 MCG/ACT HFA 8 GM INHALER INH SCH ×4 (09:56→20:52)
[2017-08-20] MEDS: ACETAMINOPHEN 325 MG TAB PO PRN (09:56)
[2017-08-20] MEDS: BUDESONIDE-FORMOTEROL 160/4.5 MCG INHALER INH SCH ×2 (09:56→20:55)
[2017-08-20] MEDS: HEPARIN SODIUM - SQ 10,000 UNITS/ML VIAL SQ SCH ×2 (09:57→20:53)
[2017-08-20] MEDS: FUROSEMIDE 40 MG/4 ML VIAL IV PUSH SCH (09:57)
[2017-08-20] MEDS: SODIUM CHLORIDE 0.9% FLUSH 10 ML FLUSH IV FLUSH SCH ×2 (10:01→20:53)
--- NOTE | 2017-08-20 11:32 | ECHRPT ---
Indication: HEART FAILURE CONCLUSIONS Normal left ventricular size. Wall thickness is measured at the upper limits of normal. The left ventricular systolic function is hyperdynamic with an estimated ejection fraction in the ra nge of 70- 75%. Mitral annular calcification is present. Trace mitral valve regurgitation. The aortic valve prosthesis is normal to two-dimensional, color flow and Doppler interrogation. There is trace tricuspid valve regurgitation. The estimated pulmonary arterial pressure is 52.5 mmHg. BP: / HR: Rhythm: MEASUREMENTS (Male / Female) Normal Values Technical Quality:Good 2D ECHO LV Diastolic Diameter PLAX 4.5 cm 4.2 - 5.9 / 3.9 - 5.3 cm LV Systolic Diameter PLAX 2.8 cm IVS Diastolic Thickness 1.3 cm 0.6 - 1.0 / 0.6 - 0.9 cm LVPW Diastolic Thickness 0.8 cm 0.6 - 1.0 / 0.6 - 0.9 cm LV Relative Wall Thickness 0.5 RV Internal Dim ED PLAX 2.0 cm LA Systolic Diameter LX 3.5 cm 3.0 - 4.0 / 2.7 - 3.8 cm DOPPLER AV Peak Velocity 318.0 cm/s AV Peak Gradient 40.4 mmHg AV Mean Gradient 17.7 mmHg AV Velocity Time Integral 74.4 cm LVOT Peak Velocity 127.0 cm/s LVOT Peak Gradient 6.5 mmHg LVOT Velocity Time Integral 36.6 cm Mitral E Point Velocity 51.4 cm/s Mitral A Point Velocity 93.2 cm/s Mitral E to A Ratio 0.6 TR Peak Velocity 326.0 cm/s TR Peak Gradient 42.5 mmHg Right Atrial Pressure 10.0 mmHg Pulmonary Artery Systolic Pressu 52.5 mmHg Right Ventricular Systolic Press 52.5 mmHg FINDINGS LEFT VENTRICLE Normal left ventricular size. Wall thickness is measured at the upper limits of normal. The left ventricular systolic function is hyperdynamic with an estimated ejection fraction in the ra nge of 70- 75%. RIGHT VENTRICLE Normal right ventricular size and systolic function. LEFT ATRIUM The left atrial size is normal. RIGHT ATRIUM The right atrial size is normal. ATRIAL SEPTUM Normal atrial septal thickness without atrial level shunting by limited color doppler interrogation. AORTA The aortic root and proximal ascending aorta are normal in size on limited imaging. MITRAL VALVE Mitral annular calcification is present. Trace mitral valve regurgitation. AORTIC VALVE The aortic valve prosthesis is normal to two-dimensional, color flow and Doppler interrogation. TRICUSPID VALVE There is trace tricuspid valve regurgitation. The estimated pulmonary arterial pressure is 52.5 mmHg. There is estimated moderate pulmonary hypertension present (range 50-60 mmHg). PULMONARY VALVE No pulmonary valve regurgitation or stenosis. VESSELS The inferior vena cava is normal in size. PERICARDIUM No pericardial effusion. Freddie Ramachandran MD (Electronically Signed) Final Date:20 August 2017 11:32
--- NOTE | 2017-08-20 12:13 | MB ---
cc: Lee Delarosa MD DATE: 08/20/2017 Covering for Tan Muhammad MD HISTORY OF PRESENT ILLNESS: The patient is a 66-year-old female who came in with shortness of breath. She does have a history of COPD, AAA, and history of aortic valve replacement with a bovine valve. Now, she reports that her symptoms started over the past week. She kept on having shortness of breath and she was having swelling in her right leg. Prior to that, she was treated with a Z-Elias and a course of prednisone by her primary care doctor. Right now, she is doing a little bit better. The patient does have orthopnea. She is not having any fevers or chills right now. She does have cough, but the cough is dry. The patient was diagnosed with CHF exacerbation and was started on diuretics and she is already improving. PAST MEDICAL HISTORY: Reviewed in detail. Positive for history of AAA, anxiety, depression, COPD, tobacco abuse, hypertension, left upper extremity DVT, history of rheumatic fever as a child, Graves disease, and dyslipidemia. PAST SURGICAL HISTORY: Reviewed in detail as well. ALLERGIES: SHE IS ALLERGIC TO PENICILLINS AND ERYTHROMYCIN. REVIEW OF SYSTEMS: Negative except what is mentioned in the HPI. PHYSICAL EXAMINATION: VITAL SIGNS: Show temperature 98.1, pulse 46, respiratory rate is 30-36, blood pressure 133/50, she is sating 94% on 3 L nasal cannula. HEAD AND NECK: Atraumatic, normocephalic. Trachea midline. LUNGS: Mild expiratory wheezing and basal crackles. HEART: S1, S2, bradycardic. ABDOMEN: Soft, nontender, slightly obese. EXTREMITIES: Trace edema. No cyanosis. NEUROLOGIC: Alert, oriented x 3, moves all extremities. LABORATORY DATA: Reviewed. Sodium 149, potassium 4.1, BUN is 31, creatinine is 1.10. WBC is 22, hemoglobin 11.8. Her INR is 1.0. I reviewed her CAT scan. It did not show any PE; however, the CAT scan did show evidence of multiple subcentimeter pulmonary nodules and evidence of small bilateral effusions with cardiomegaly. No PE. ASSESSMENT AND PLAN: 1. Congestive heart failure exacerbation. 2. Chronic obstructive pulmonary disease with likely acute exacerbation. 3. Multiple subcentimeter pulmonary nodules. 4. Hypernatremia. I had a long discussion with the patient and I agree with the current choice of the steroids. I agree with the bronchodilators. I agree with antibiotics. The patient will need to be treated and optimized from congestive heart failure perspective and she is already on treatment and followed by cardiology. As far as the pulmonary nodules, the patient did have a previous CAT scan that I do recommend to bring and compare and these nodules will need to be followed as an outpatient. There is nothing to do here inpatient. I do recommend to wean FiO2 for O2 saturation more than or equal to [address] Muhammad will be back in the morning and he will continue to follow taking care of Mrs. Harris. MD NEO EisenbergO/EDER , 11:42 AM , 12:12 PM
[2017-08-20] MEDS: LEVOFLOXACIN 750 MG PREMIX INJ 150 ML IV SCH (14:05)
[2017-08-20] MEDS: ACETAMINOPHEN/HYDROcodone 325 MG/5 MG TAB PO PRN ×2 (14:05→20:54)
--- NOTE | 2017-08-20 16:22 | PD.CARD.PN ---
Subjective Subjective Remarks Pt still sob, no clear sx from her bradycardia (worse at night, better w/ ambulation) Objective Medications Current Medications Medications (Trade) Dose Ordered Sig/Azeb Route Start Time Stop Time Status Last Admin (NS Flush) 2 ml UNSCH PRN IV FLUSH 08/19/17 13:00 (NS Flush) 2 ml BID IV FLUSH 08/19/17 21:00 08/20/17 10:01 (Tylenol) 650 mg Q4H PRN PO 08/19/17 13:00 08/20/17 09:56 (Zofran Inj) 4 mg Q6H PRN IVP 08/19/17 13:00 (Narcan Inj) 0.4 mg UNSCH PRN IV PUSH 08/19/17 13:00 (Madison-Colace) 1 tab BID PO 08/19/17 21:00 08/20/17 09:55 (Milk Of Magnesia Liq) 30 ml Q12H PRN PO 08/19/17 13:00 (Senokot) 17.2 mg Q12H PRN PO 08/19/17 13:00 (Dulcolax Supp) 10 mg DAILY PRN RECTAL 08/19/17 13:00 (SoluMEDROL INJ) 40 mg Q6HR IV PUSH 08/19/17 18:00 08/20/17 12:00 Levofloxacin/ Dextrose 150 ml @ 100 mls/hr Q24H IV 08/19/17 14:00 08/20/17 14:05 (Duoneb Neb) 1 ampule Q6HR WHILE AWAKE NEB NEB 08/19/17 14:00 08/20/17 13:45 (Duoneb Neb) 1 ampule Q2HR NEB PRN NEB 08/19/17 13:00 (Lasix Inj) 40 mg DAILY IV PUSH 08/20/17 09:00 08/20/17 09:57 (Heparin Inj) 5,000 units Q12HR SQ 08/19/17 21:00 08/20/17 09:57 (Xanax) 0.5 mg Q6H PRN PO 08/19/17 19:30 08/20/17 09:55 (Plavix) 75 mg DAILY PO 08/20/17 09:00 08/20/17 09:55 (Cozaar) 100 mg DAILY PO 08/20/17 09:00 08/20/17 09:55 (Tylenol) 650 mg Q4H PRN PO 08/19/17 19:30 (Spiriva Inh) 18 mcg DAILY INH 08/20/17 09:00 08/20/17 09:00 (Proair Hfa Inh) 2 puff QID INH 08/19/17 21:00 08/20/17 13:11 (Symbicort 160-4.5 Mcg Inh) 2 puff BID INH 08/19/17 21:00 08/20/17 09:56 (PROzac) 40 mg BID PO 08/19/17 21:00 08/20/17 09:55 (Mucinex Er) 600 mg BID PO 08/20/17 09:15 08/20/17 09:15 (Ono 5-325 Mg) 1 tab Q4H PRN PO 08/20/17 13:45 08/20/17 14:05 Vital Signs / I&O Vital Signs Date Time Temp Pulse Resp B/P (MAP) Pulse Ox O2 Delivery O2 Flow Rate FiO2 08/20/17 12:00 52 08/20/17 12:00 46 26 95 08/20/17 11:00 46 30 95 08/20/17 11:00 51 08/20/17 10:56 32 08/20/17 10:15 98.1 46 36 133/50 (77) 94 08/20/17 10:15 46 36 133/50 (77) 94 08/20/17 10:00 49 08/20/17 09:00 43 08/20/17 08:00 45 32 141/79 (99) 95 08/20/17 08:00 42 08/20/17 07:45 95 Nasal Cannula 3.00 08/20/17 07:00 48 08/20/17 06:00 43 08/20/17 05:00 38 08/20/17 04:00 97.5 38 21 144/71 (95) 94 08/20/17 04:00 43 08/20/17 03:00 37 08/20/17 02:00 43 08/20/17 01:00 38 08/20/17 00:00 97.6 43 21 137/62 (87) 95 08/20/17 00:00 43 08/19/17 23:00 44 08/19/17 22:00 46 08/19/17 21:00 43 08/19/17 20:01 98.9 42 29 119/43 (68) 94 08/19/17 20:00 93 Nasal Cannula 3.00 08/19/17 20:00 46 08/19/17 19:00 47 08/19/17 18:00 40 I/O 08/19/17 08/19/17 08/19/17 08/20/17 08/20/17 08/20/17 07:00 15:00 23:00 07:00 15:00 23:00 Intake Total 100 ml 250 ml 360 ml Output Total 700 ml Balance 100 ml 250 ml -340 ml Intake Oral 250 ml 360 ml IV Total 100 ml Output Urine Total 700 ml # Voids 1 # Bowel Movements 0 Physical Exam Administered Medications Medications (Trade) Dose Ordered Sig/Azeb Route PRN Reason Start Time Stop Time Status Last Admin Dose Admin Sodium Chloride (NS Flush) 2 ml BID IV FLUSH 08/19/17 21:00 08/20/17 10:01 Acetaminophen (Tylenol) 650 mg Q4H PRN PO TEMP > 100.4 08/19/17 13:00 08/20/17 09:56 Senna/Docusate Sodium (Madison-Colace) 1 tab BID PO 08/19/17 21:00 08/20/17 09:55 Methylprednisolone Sodium Succinate (SoluMEDROL INJ) 40 mg Q6HR IV PUSH 08/19/17 18:00 08/20/17 12:00 Levofloxacin/ Dextrose 150 ml @ 100 mls/hr Q24H IV 08/19/17 14:00 08/20/17 14:05 Albuterol/ Ipratropium (Duoneb Neb) 1 ampule Q6HR WHILE AWAKE NEB NEB 08/19/17 14:00 08/20/17 13:45 Furosemide (Lasix Inj) 40 mg DAILY IV PUSH 08/20/17 09:00 08/20/17 09:57 Heparin Sodium (Porcine) (Heparin Inj) 5,000 units Q12HR SQ 08/19/17 21:00 08/20/17 09:57 Alprazolam (Xanax) 0.5 mg Q6H PRN PO ANXIETY 08/19/17 19:30 08/20/17 09:55 Clopidogrel Bisulfate (Plavix) 75 mg DAILY PO 08/20/17 09:00 08/20/17 09:55 Losartan Potassium (Cozaar) 100 mg DAILY PO 08/20/17 09:00 08/20/17 09:55 Tiotropium R[place]ston (Spiriva Inh) 18 mcg DAILY INH 08/20/17 09:00 08/20/17 09:00 Albuterol Sulfate (Proair Hfa Inh) 2 puff QID INH 08/19/17 21:00 08/20/17 13:11 Budesonide/ Formoterol Fumarate (Symbicort 160-4.5 Mcg Inh) 2 puff BID INH 08/19/17 21:00 08/20/17 09:56 Fluoxetine HCl (PROzac) 40 mg BID PO 08/19/17 21:00 08/20/17 09:55 Guaifenesin (Mucinex Er) 600 mg BID PO 08/20/17 09:15 08/20/17 09:15 Acetaminophen/ Hydrocodone Bitart (Ono 5-325 Mg) 1 tab Q4H PRN PO pain 1-10 08/20/17 13:45 08/20/17 14:05 Laboratory Laboratory Tests Test 08/20/17 05:40 08/20/17 12:25 White Blood Count 22.0 TH/MM3 Red Blood Count 4.10 MIL/MM3 Hemoglobin 11.8 GM/DL Hematocrit 34.3 % Mean Corpuscular Volume 83.6 FL Mean Corpuscular Hemoglobin 28.9 PG Mean Corpuscular Hemoglobin Concent 34.6 % Red Cell Distribution Width 14.8 % Platelet Count 191 TH/MM3 Mean Platelet Volume 9.1 FL Neutrophils (%) (Auto) 92.8 % Lymphocytes (%) (Auto) 5.4 % Monocytes (%) (Auto) 0.8 % Eosinophils (%) (Auto) 0.1 % Basophils (%) (Auto) 0.9 % Neutrophils # (Auto) 20.4 TH/MM3 Lymphocytes # (Auto) 1.2 TH/MM3 Monocytes # (Auto) 0.2 TH/MM3 Eosinophils # (Auto) 0.0 TH/MM3 Basophils # (Auto) 0.2 TH/MM3 CBC Comment DIFF FINAL Differential Comment Blood Urea Nitrogen 31 MG/DL Creatinine 1.10 MG/DL Random Glucose 150 MG/DL Calcium Level 8.2 MG/DL Sodium Level 149 MEQ/L Potassium Level 4.1 MEQ/L Chloride Level 111 MEQ/L Carbon Dioxide Level 25.4 MEQ/L Anion Gap 13 MEQ/L Estimat Glomerular Filtration Rate 50 ML/MIN Blood Gas Puncture Site RT BRACHIAL Blood Gas Patient Temperature 37.0 Blood Gas HCO3 23 mmol/L Blood Gas Base Excess -0.5 mmol/L Blood Gas Oxygen Saturation 93 % Arterial Blood pH 7.46 Arterial Blood Partial Pressure CO2 32 mmHg Arterial Blood Partial Pressure O2 73 mmHg Arterial Blood Oxygen Content 15.7 Vol % Arterial Blood Carboxyhemoglobin 0.3 % Arterial Blood Methemoglobin 1.1 % Blood Gas Hemoglobin 12.0 G/DL Oxygen Delivery Device NASAL CANNULA Blood Gas Liter Flow 3 L/M Imaging Last Impressions Chest X-Ray 08/19/17956 Signed Impressions: Service Date/Time: Saturday, August 19, 2017 10:01 - CONCLUSION: Bibasilar patchiness consistent with atelectasis and/or infiltrates. Minimal cardiomegaly. Ronaldo Gutiérrez MD CT Angiography 08/19/1757 Signed Impressions: Service Date/Time: Saturday, August 19, 2017 10:34 - CONCLUSION: 1. No evidence of pulmonary embolism. 2. Scattered tiny noncalcified pulmonary nodules ranging in size from 3-7 mm suggestive of true pulmonary nodules or reticulonodular infiltrates. Clinical correlation is recommended. 3. Small bilateral pleural effusions with adjacent compressive atelectasis. 4. Cardiomegaly and coronary artery calcifications. Ronaldo Gutiérrez MD Lower Extremity Ultrasound 08/19/17 0000 Signed Impressions: Service Date/Time: Saturday, August 19, 2017 13:59 - CONCLUSION: No DVT. Terry Liriano MD Abdomen X-Ray 08/19/17 0000 Signed Impressions: Service Date/Time: Saturday, August 19, 2017 14:29 - CONCLUSION: Mildly distended small bowel. Terry Liriano MD Assessment and Plan Problem List: (1) Bradycardia ICD Codes: R00.1 - Bradycardia, unspecified Plan: No clear sx; suspect GARFIELD; would recommend sleep study as outpt (2) CHF exacerbation ICD Codes: I50.9 - Heart failure, unspecified Status: Acute Plan: Normal LVEF; moderately elevated pulmonary pressures on her echo; cr bumped slightly w/ lasix, will try one more IV dose. (3) COPD with acute exacerbation ICD Codes: J44.1 - Chronic obstructive pulmonary disease with (acute) exacerbation Plan: Per pulmonary team; also likely responsible for her elevated pulmonary pressures. Problem Qualifiers (1) CHF exacerbation: Qualified Codes: I50.9 - Heart failure, unspecified Freddie Ramachandran MD Aug 20, 2017 16:22
[2017-08-20 18:05] LABS: BILIRUBIN, URINE NEG (NEG); BLOOD, URINE NEG (NEG); GLUCOSE,URINE NEG (NEG); KETONE, URINE NEG (NEG); NITRITE,URINE NEG (NEG); URINE COLOR YELLOW (YELLW/STRAW); URINE LEUKOCYTE ESTERASE MOD (NEG)
[2017-08-20 18:14] LABS: BACTERIA, URINE MANY /hpf
[2017-08-21] VITALS (33 sets, daily range): BP systolic 125–165; BP diastolic 49–68; PULSE 42–82; RESP 14–47; TEMP 97.5–98.8; O2SAT 95–98
[2017-08-21] MEDS: methylPREDNISolone SOD SUCC 40 MG/1 ML VIAL IV PUSH SCH ×3 (05:50→19:31)
--- NOTE | 2017-08-21 06:33 | RADRPT ---
EXAM DATE/TIME: 08/21/2017 06:05 [facility] COMPARISON: CHEST SINGLE AP, August 19, 2017, 10:01. INDICATIONS : Shortness of breath. MEDICAL HISTORY : Aneurysm, abdominal. Congestive heart failure. Chronic obstructive pulmonary disease. Hypertensio n. Grave's disease. SURGICAL HISTORY : Abdominal aortic aneurysm repair. Bovine valve replacement. ENCOUNTER: Subsequent ACUITY: 3 days PAIN SCORE: 0/10 LOCATION: Bilateral chest FINDINGS: A single view of the chest demonstrates improving interstitial densities. Cardiomegaly with CABG. Os seous structures are intact. CONCLUSION: Cardiomegaly with improvement in interstitial edema. Donte Serna MD on August 21, 2017 at 6:29 Board Certified Radiologist. This report was verified electronically.
[2017-08-21] MEDS: RESP: ALBUTEROL 2.5 MG/IPRATROPIUM 0.5 MG NEB (SCH) NEB ×3 (07:25→19:35)
[2017-08-21] MEDS: CLOPIDOGREL 75 MG TAB PO SCH (07:38)
[2017-08-21] MEDS: ALPRAZolam 0.5 MG TAB PO PRN ×2 (07:39→21:47)
[2017-08-21] MEDS: FLUoxetine HCL 20 MG CAP PO SCH ×2 (07:39→21:46)
[2017-08-21] MEDS: TIOTROPIUM BROMIDE 18 MCG INH INH SCH (07:39)
[2017-08-21] MEDS: guaiFENesin E.R. 600 MG TAB PO SCH ×2 (07:39→21:47)
[2017-08-21] MEDS: FUROSEMIDE 40 MG/4 ML VIAL IV PUSH SCH (07:40)
[2017-08-21] MEDS: SODIUM CHLORIDE 0.9% FLUSH 10 ML FLUSH IV FLUSH SCH ×2 (07:40→21:50)
[2017-08-21] MEDS: DOCUSATE SODIUM 50 MG/SENNA 8.6 MG TAB PO SCH ×2 (07:44→21:46)
[2017-08-21] MEDS: ALBUTEROL SULFATE 90 MCG/ACT HFA 8 GM INHALER INH SCH ×4 (08:15→21:49)
[2017-08-21] MEDS: BUDESONIDE-FORMOTEROL 160/4.5 MCG INHALER INH SCH ×2 (08:15→21:48)
[2017-08-21] MEDS: LOSARTAN 50 MG TAB PO SCH (08:46)
[2017-08-21] MEDS: HEPARIN SODIUM - SQ 10,000 UNITS/ML VIAL SQ SCH ×2 (08:47→21:50)
[2017-08-21 08:53] LABS: AUTOMATED NEUTROPHIL # 22.5 TH/MM3 (1.8-7.7); BASOPHIL % 0.1 % (0.0-2.0); EOSINOPHIL % 0.1 % (0.0-4.0); HEMOGLOBIN 11.5 GM/DL (11.6-15.3); MEAN CELL VOLUME 84.8 FL (80.0-100.0); MEAN CORPUSCULAR HGB CONC 31.8 % (32.0-36.0); MEAN PLATELET VOLUME 9.1 FL (7.0-11.0); MONO % 2.1 % (0.0-8.0); MONOCYTE # 0.5 TH/MM3 (0-0.9); NEUT % 93.7 % (16.0-70.0); PLATELET COUNT 205 TH/MM3 (150-450); RED BLOOD COUNT 4.25 MIL/MM3 (4.00-5.30); RED CELL DISTRIBUTION WIDTH 14.7 % (11.6-17.2)
[2017-08-21 09:00] LABS: CALCIUM 8.7 MG/DL (8.5-10.1)
[2017-08-21 09:01] LABS: BICARBONATE 24.5 MEQ/L (21.0-32.0)
[2017-08-21 09:04] LABS: CREATININE 1.1 MG/DL (0.50-1.00)
--- NOTE | 2017-08-21 09:09 | HHI.PR ---
Subjective Remarks Follow-up CHF exacerbation, COPD exacerbation and bradycardia. Patient seen and examined, sitting on side of bed eating breakfast. On 2 L nasal cannula. States her dyspnea has somewhat improved. Lower extremity swelling improved. Pulmonary consult appreciated. Continued bradycardia but asymptomatic, while ambulating patient's heart rate increases to the 70s. Vital signs are stable. Afebrile. Objective Vitals Vital Signs Date Time Temp Pulse Resp B/P (MAP) Pulse Ox O2 Delivery O2 Flow Rate FiO2 08/21/17 08:00 74 08/21/17 08:00 98.0 72 24 148/56 (86) 96 08/21/17 07:26 98 Nasal Cannula 2.00 08/21/17 07:00 43 08/21/17 06:00 45 08/21/17 05:00 43 08/21/17 04:00 97.5 43 25 125/58 (80) 95 08/21/17 04:00 43 08/21/17 03:00 43 08/21/17 02:00 42 08/21/17 01:00 76 08/21/17 00:00 43 08/21/17 00:00 97.6 43 27 136/66 (89) 97 08/20/17 23:00 97 08/20/17 22:00 42 08/20/17 21:54 23 08/20/17 21:00 42 08/20/17 20:00 97.8 42 31 122/46 (71) 96 08/20/17 20:00 42 08/20/17 19:25 97 Nasal Cannula 3.00 08/20/17 19:00 99 08/20/17 18:00 48 08/20/17 18:00 46 37 58/49 (52) 94 08/20/17 17:00 44 08/20/17 16:42 46 37 154/50 (84) 95 08/20/17 16:00 47 08/20/17 15:00 48 08/20/17 14:06 46 39 131/63 (85) 96 08/20/17 14:00 52 08/20/17 13:00 49 08/20/17 12:00 52 08/20/17 12:00 46 26 135/56 (82) 95 08/20/17 12:00 46 26 95 08/20/17 11:00 46 30 95 08/20/17 11:00 51 08/20/17 10:56 32 08/20/17 10:15 98.1 46 36 133/50 (77) 94 08/20/17 10:15 46 36 133/50 (77) 94 08/20/17 10:00 49 I/O 08/20/17 08/20/17 08/20/17 08/21/17 08/21/17 08/21/17 07:00 15:00 23:00 07:00 15:00 23:00 Intake Total 360 ml 450 ml 420 ml 240 ml Output Total 700 ml 500 ml 801 ml Balance -340 ml -50 ml -381 ml 240 ml Intake Oral 360 ml 450 ml 420 ml 240 ml Output Urine Total 700 ml 500 ml 800 ml Stool Total 1 ml # Voids 5 # Bowel Movements 0 0 Result Diagram: 08/21/17 0845 08/21/17 0845 Imaging Last Impressions Chest X-Ray 08/19/17 0957 Signed Impressions: Service Date/Time: Saturday, August 19, 2017 10:01 - CONCLUSION: Bibasilar patchiness consistent with atelectasis and/or infiltrates. Minimal cardiomegaly. Ronaldo Gutiérrez MD CT Angiography 08/19/17 0957 Signed Impressions: Service Date/Time: Saturday, August 19, 2017 10:34 - CONCLUSION: 1. No evidence of pulmonary embolism. 2. Scattered tiny noncalcified pulmonary nodules ranging in size from 3-7 mm suggestive of true pulmonary nodules or reticulonodular infiltrates. Clinical correlation is recommended. 3. Small bilateral pleural effusions with adjacent compressive atelectasis. 4. Cardiomegaly and coronary artery calcifications. Ronaldo Gutiérrez MD Lower Extremity Ultrasound 08/19/17 0000 Signed Impressions: Service Date/Time: Saturday, August 19, 2017 13:59 - CONCLUSION: No DVT. Terry Liriano MD Abdomen X-Ray 08/19/17 0000 Signed Impressions: Service Date/Time: Saturday, August 19, 2017 14:29 - CONCLUSION: Mildly distended small bowel. Terry Liriano MD Objective Remarks GENERAL: Well-developed, well-nourished patient on 2 L nasal cannula SKIN: Warm and dry. Multiple scars on bilateral upper extremities. Abdominal scarring noted from prior surgeries. HEAD: Normocephalic. Atraumatic. EYES: Pupils equal and round. No scleral icterus. No injection or drainage. ENT: No nasal bleeding or discharge. Mucous membranes pink and moist. NECK: Supple. Trachea midline. CARDIOVASCULAR: Sinus bradycardia S1, S2 noted. 2 out of 6 systolic murmur RESPIRATORY: No accessory muscle use. Diminished breath sounds in bases. Breath sounds equal bilaterally. GASTROINTESTINAL: Abdomen round and distended. Hypoactive bowel sounds x4. MUSCULOSKELETAL: No obvious deformities. Extremities without clubbing, cyanosis , or edema. NEUROLOGICAL: Awake and alert. No obvious cranial nerve deficits. Motor grossly within normal limits. 5/5 muscle strength in bilateral upper and lower extremities. Normal speech. PSYCHIATRIC: Appropriate mood and affect; insight and judgment normal. A/P Problem List: (1) CHF exacerbation ICD Code: I50.9 - Heart failure, unspecified Status: Acute Plan: Acute on chronic diastolic failure in the setting of CHF requiring IV Lasix. BNP 533 on presentation. Given 20 mg IV push in ED. Placed on Lasix 40 mg IV daily. Additional dose last evening. Monitor intake and output closely. Follow clinically. Echocardiogram reviewed, hyperdynamic EF 70%. Cardiology signed off, will be available if needed. Strongly recommending outpatient sleep study. (2) COPD with acute exacerbation ICD Code: J44.1 - Chronic obstructive pulmonary disease with (acute) exacerbation Plan: COPD with exacerbation with acute respiratory failure Failed outpatient treatment. Patient admits to completing a azithromycin pack prior to admission with supplemental steroids. Patient with leukocytosis, white blood cell 15,000 this is suspect secondary to recent steroid use. We will continue to monitor CBC, monitor for infection, afebrile. Was given Levaquin in the ED. Will continue due to possible pneumonia with reticulonodular infiltrates found on CTA. Also given Solu-Medrol 125 mg IV push in ED. Continue on scheduled steroids. Duo nebs as needed and scheduled. Supplemental O2 as needed, keep saturations above 92%. Requiring 2 L nasal cannula. D-dimer elevated, chest CTA obtained and reviewed showing no evidence of PE. There are scattered tiny noncalcified pulmonary nodules. Patient states that she is aware of these nodules and has been followed with her primary care doctor. Records requested, follow. She was told that these were benign. Small bilateral pleural effusions with adjacent compressive atelectasis found. Pulmonology consulted, appreciate input recommendations. ABG within normal limits yesterday. Sputum culture pending. CXR improvement in interstitial edema. (3) Bradycardia ICD Code: R00.1 - Bradycardia, unspecified Plan: Heart rate in the 40s at rest. Patient denies any history of bradycardia nor on any beta-blockers at home. Patient is asymptomatic at this time. Denies any chest pain. EKG reviewed showing sinus bradycardia with second-degree heart block. We will continue to monitor closely. Cardiology input appreciated. Recommendations for outpatient sleep study to rule out sleep apnea.. Given aspirin in ED. Will avoid any beta-blockers. When patient gets out of bed, heart rate is in the 70s. (4) Hypertension ICD Code: I10 - Essential (primary) hypertension Plan: Blood pressure significantly elevated in ED. Given one-time dose of clonidine in ED. Assess BP trends. Now stabilized. DVT prophylaxis: SCDs. Heparin. Problem Qualifiers (1) CHF exacerbation: Qualified Codes: I50.33 - Acute on chronic diastolic (congestive) heart failure Myra Jimenez Aug 21, 2017 09:09
--- NOTE | 2017-08-21 10:15 | PD.CARD.PN ---
Subjective Subjective Remarks Pt still sob, no clear sx from her bradycardia (worse at night, better w/ ambulation), somewhat improved from yesterday Objective Medications Current Medications Medications (Trade) Dose Ordered Sig/Azeb Route Start Time Stop Time Status Last Admin (NS Flush) 2 ml UNSCH PRN IV FLUSH 08/19/17 13:00 (NS Flush) 2 ml BID IV FLUSH 08/19/17 21:00 08/21/17 07:40 (Tylenol) 650 mg Q4H PRN PO 08/19/17 13:00 08/20/17 09:56 (Zofran Inj) 4 mg Q6H PRN IVP 08/19/17 13:00 (Narcan Inj) 0.4 mg UNSCH PRN IV PUSH 08/19/17 13:00 (Madison-Colace) 1 tab BID PO 08/19/17 21:00 08/20/17 20:53 (Milk Of Magnesia Liq) 30 ml Q12H PRN PO 08/19/17 13:00 (Senokot) 17.2 mg Q12H PRN PO 08/19/17 13:00 (Dulcolax Supp) 10 mg DAILY PRN RECTAL 08/19/17 13:00 (SoluMEDROL INJ) 40 mg Q6HR IV PUSH 08/19/17 18:00 08/21/17 05:50 Levofloxacin/ Dextrose 150 ml @ 100 mls/hr Q24H IV 08/19/17 14:00 08/20/17 14:05 (Duoneb Neb) 1 ampule Q6HR WHILE AWAKE NEB NEB 08/19/17 14:00 08/21/17 07:25 (Duoneb Neb) 1 ampule Q2HR NEB PRN NEB 08/19/17 13:00 (Lasix Inj) 40 mg DAILY IV PUSH 08/20/17 09:00 08/21/17 07:40 (Heparin Inj) 5,000 units Q12HR SQ 08/19/17 21:00 08/21/17 08:47 (Xanax) 0.5 mg Q6H PRN PO 08/19/17 19:30 08/21/17 07:39 (Plavix) 75 mg DAILY PO 08/20/17 09:00 08/21/17 07:38 (Cozaar) 100 mg DAILY PO 08/20/17 09:00 08/20/17 09:55 (Tylenol) 650 mg Q4H PRN PO 08/19/17 19:30 (Spiriva Inh) 18 mcg DAILY INH 08/20/17 09:00 08/21/17 07:39 (Proair Hfa Inh) 2 puff QID INH 08/19/17 21:00 08/21/17 08:15 (Symbicort 160-4.5 Mcg Inh) 2 puff BID INH 08/19/17 21:00 08/21/17 08:15 (PROzac) 40 mg BID PO 08/19/17 21:00 08/21/17 07:39 (Mucinex Er) 600 mg BID PO 08/20/17 09:15 08/21/17 07:39 (Cook Sta 5-325 Mg) 1 tab Q4H PRN PO 08/20/17 13:45 08/20/17 20:54 (Robitussin Ac 200-20 Mg/10 ml Liq) 10 ml Q6H PRN PO 08/20/17 17:30 Vital Signs / I&O Vital Signs Date Time Temp Pulse Resp B/P (MAP) Pulse Ox O2 Delivery O2 Flow Rate FiO2 08/21/17 09:00 47 08/21/17 08:00 74 08/21/17 08:00 98.0 72 24 148/56 (86) 96 08/21/17 07:26 98 Nasal Cannula 2.00 08/21/17 07:00 43 08/21/17 06:00 45 08/21/17 05:00 43 08/21/17 04:00 97.5 43 25 125/58 (80) 95 08/21/17 04:00 43 08/21/17 03:00 43 08/21/17 02:00 42 08/21/17 01:00 76 08/21/17 00:00 43 08/21/17 00:00 97.6 43 27 136/66 (89) 97 08/20/17 23:00 97 08/20/17 22:00 42 08/20/17 21:54 23 08/20/17 21:00 42 08/20/17 20:00 97.8 42 31 122/46 (71) 96 08/20/17 20:00 42 08/20/17 19:25 97 Nasal Cannula 3.00 08/20/17 19:00 99 08/20/17 18:00 48 08/20/17 18:00 46 37 58/49 (52) 94 08/20/17 17:00 44 08/20/17 16:42 46 37 154/50 (84) 95 08/20/17 16:00 47 08/20/17 15:00 48 08/20/17 14:06 46 39 131/63 (85) 96 08/20/17 14:00 52 08/20/17 13:00 49 08/20/17 12:00 52 08/20/17 12:00 46 26 135/56 (82) 95 08/20/17 12:00 46 26 95 08/20/17 11:00 46 30 95 08/20/17 11:00 51 08/20/17 10:56 32 08/20/17 10:15 98.1 46 36 133/50 (77) 94 08/20/17 10:15 46 36 133/50 (77) 94 I/O 08/20/17 08/20/17 08/20/17 08/21/17 08/21/17 08/21/17 07:00 15:00 23:00 07:00 15:00 23:00 Intake Total 360 ml 450 ml 420 ml 240 ml Output Total 700 ml 500 ml 801 ml Balance -340 ml -50 ml -381 ml 240 ml Intake Oral 360 ml 450 ml 420 ml 240 ml Output Urine Total 700 ml 500 ml 800 ml Stool Total 1 ml # Voids 5 # Bowel Movements 0 0 Physical Exam Administered Medications Medications (Trade) Dose Ordered Sig/Azeb Route PRN Reason Start Time Stop Time Status Last Admin Dose Admin Sodium Chloride (NS Flush) 2 ml BID IV FLUSH 08/19/17 21:00 08/20/17 10:01 Acetaminophen (Tylenol) 650 mg Q4H PRN PO TEMP > 100.4 08/19/17 13:00 08/20/17 09:56 Senna/Docusate Sodium (Madison-Colace) 1 tab BID PO 08/19/17 21:00 08/20/17 09:55 Methylprednisolone Sodium Succinate (SoluMEDROL INJ) 40 mg Q6HR IV PUSH 08/19/17 18:00 08/20/17 12:00 Levofloxacin/ Dextrose 150 ml @ 100 mls/hr Q24H IV 08/19/17 14:00 08/20/17 14:05 Albuterol/ Ipratropium (Duoneb Neb) 1 ampule Q6HR WHILE AWAKE NEB NEB 08/19/17 14:00 08/20/17 13:45 Furosemide (Lasix Inj) 40 mg DAILY IV PUSH 08/20/17 09:00 08/20/17 09:57 Heparin Sodium (Porcine) (Heparin Inj) 5,000 units Q12HR SQ 08/19/17 21:00 08/20/17 09:57 Alprazolam (Xanax) 0.5 mg Q6H PRN PO ANXIETY 08/19/17 19:30 08/20/17 09:55 Clopidogrel Bisulfate (Plavix) 75 mg DAILY PO 08/20/17 09:00 08/20/17 09:55 Losartan Potassium (Cozaar) 100 mg DAILY PO 08/20/17 09:00 08/20/17 09:55 Tiotropium [place] (Spiriva Inh) 18 mcg DAILY INH 08/20/17 09:00 08/20/17 09:00 Albuterol Sulfate (Proair Hfa Inh) 2 puff QID INH 08/19/17 21:00 08/20/17 13:11 Budesonide/ Formoterol Fumarate (Symbicort 160-4.5 Mcg Inh) 2 puff BID INH 08/19/17 21:00 08/20/17 09:56 Fluoxetine HCl (PROzac) 40 mg BID PO 08/19/17 21:00 08/20/17 09:55 Guaifenesin (Mucinex Er) 600 mg BID PO 08/20/17 09:15 08/20/17 09:15 Acetaminophen/ Hydrocodone Bitart (Cook Sta 5-325 Mg) 1 tab Q4H PRN PO pain 1-10 08/20/17 13:45 08/20/17 14:05 Laboratory Laboratory Tests Test 08/20/17 12:25 08/20/17 17:42 08/21/17 08:45 Blood Gas Puncture Site RT BRACHIAL Blood Gas Patient Temperature 37.0 Blood Gas HCO3 23 mmol/L Blood Gas Base Excess -0.5 mmol/L Blood Gas Oxygen Saturation 93 % Arterial Blood pH 7.46 Arterial Blood Partial Pressure CO2 32 mmHg Arterial Blood Partial Pressure O2 73 mmHg Arterial Blood Oxygen Content 15.7 Vol % Arterial Blood Carboxyhemoglobin 0.3 % Arterial Blood Methemoglobin 1.1 % Blood Gas Hemoglobin 12.0 G/DL Oxygen Delivery Device NASAL CANNULA Blood Gas Liter Flow 3 L/M Urine Collection Type CLEAN CATCH Urine Color YELLOW Urine Turbidity CLEAR Urine pH 6.0 Urine Specific [place] LESS/EQUAL 1.005 Urine Protein NEG mg/dL Urine Glucose (UA) NEG mg/dL Urine Ketones NEG mg/dL Urine Occult Blood NEG Urine Nitrite NEG Urine Bilirubin NEG Urine Urobilinogen 0.2 MG/DL Urine Leukocyte Esterase MOD Urine WBC 9-14 /hpf Urine Bacteria MANY /hpf Microscopic Urinalysis Comment CULTURE INDICATED White Blood Count 24.0 TH/MM3 Red Blood Count 4.25 MIL/MM3 Hemoglobin 11.5 GM/DL Hematocrit 36.0 % Mean Corpuscular Volume 84.8 FL Mean Corpuscular Hemoglobin 27.0 PG Mean Corpuscular Hemoglobin Concent 31.8 % Red Cell Distribution Width 14.7 % Platelet Count 205 TH/MM3 Mean Platelet Volume 9.1 FL Neutrophils (%) (Auto) 93.7 % Lymphocytes (%) (Auto) 4.0 % Monocytes (%) (Auto) 2.1 % Eosinophils (%) (Auto) 0.1 % Basophils (%) (Auto) 0.1 % Neutrophils # (Auto) 22.5 TH/MM3 Lymphocytes # (Auto) 1.0 TH/MM3 Monocytes # (Auto) 0.5 TH/MM3 Eosinophils # (Auto) 0.0 TH/MM3 Basophils # (Auto) 0.0 TH/MM3 CBC Comment DIFF FINAL Differential Comment Blood Urea Nitrogen 32 MG/DL Creatinine 1.10 MG/DL Random Glucose 145 MG/DL Calcium Level 8.7 MG/DL Sodium Level 140 MEQ/L Potassium Level 4.4 MEQ/L Chloride Level 106 MEQ/L Carbon Dioxide Level 24.5 MEQ/L Anion Gap 10 MEQ/L Estimat Glomerular Filtration Rate 50 ML/MIN Imaging Last Impressions Chest X-Ray 08/19/17956 Signed Impressions: Service Date/Time: Saturday, August 19, 2017 10:01 - CONCLUSION: Bibasilar patchiness consistent with atelectasis and/or infiltrates. Minimal cardiomegaly. Ronaldo Gutiérrez MD CT Angiography 08/19/17956 Signed Impressions: Service Date/Time: Saturday, August 19, 2017 10:34 - CONCLUSION: 1. No evidence of pulmonary embolism. 2. Scattered tiny noncalcified pulmonary nodules ranging in size from 3-7 mm suggestive of true pulmonary nodules or reticulonodular infiltrates. Clinical correlation is recommended. 3. Small bilateral pleural effusions with adjacent compressive atelectasis. 4. Cardiomegaly and coronary artery calcifications. Ronaldo Gutiérrez MD Lower Extremity Ultrasound 08/19/17 0000 Signed Impressions: Service Date/Time: Saturday, August 19, 2017 13:59 - CONCLUSION: No DVT. Terry Liriano MD Abdomen X-Ray 08/19/17 0000 Signed Impressions: Service Date/Time: Saturday, August 19, 2017 14:29 - CONCLUSION: Mildly distended small bowel. Terry Liriano MD Assessment and Plan Problem List: (1) Bradycardia ICD Codes: R00.1 - Bradycardia, unspecified Plan: No clear sx; suspect GARFIELD; would recommend sleep study as outpt; pt's friend reports the patient would stop breathing overnight and sat's would drop. HR mostly in upper 40s while at rest in daytime, increase w/ ambulation. (2) CHF exacerbation ICD Codes: I50.9 - Heart failure, unspecified Status: Acute Plan: Normal LVEF; moderately elevated pulmonary pressures on her echo; cr bumped slightly w/ lasix, will change to oral today. (3) COPD with acute exacerbation ICD Codes: J44.1 - Chronic obstructive pulmonary disease with (acute) exacerbation Plan: Per pulmonary team; also likely responsible for her elevated pulmonary pressures. Assessment and Plan No further specific cardiac recommendations at this time, though strongly recommend sleep study to r/o GARFIELD. Will be available as needed from here, please call with questions. Problem Qualifiers (1) CHF exacerbation: Qualified Codes: I50.9 - Heart failure, unspecified Freddie Ramachandran MD Aug 21, 2017 10:15
[2017-08-21] MEDS: ACETAMINOPHEN/HYDROcodone 325 MG/5 MG TAB PO PRN ×3 (11:26→21:46)
[2017-08-21] MEDS: LEVOFLOXACIN 750 MG PREMIX INJ 150 ML IV SCH (14:00)
[2017-08-21] MEDS: guaiFENesin/CODEINE SYRUP 200 MG/20 MG/10 ML CUP PO PRN ×2 (15:51→21:47)
[2017-08-22] VITALS (23 sets, daily range): BP systolic 127–191; BP diastolic 48–79; PULSE 42–84; RESP 15–45; TEMP 96.5–98.6; O2SAT 90–99
[2017-08-22] MEDS: methylPREDNISolone SOD SUCC 40 MG/1 ML VIAL IV PUSH SCH ×4 (00:03→20:05)
[2017-08-22] MEDS: SODIUM CHLORIDE 0.9% FLUSH 10 ML FLUSH IV FLUSH PRN ×2 (00:03→06:11)
[2017-08-22] MEDS: guaiFENesin/CODEINE SYRUP 200 MG/20 MG/10 ML CUP PO PRN (05:02)
[2017-08-22] MEDS: RESP: ALBUTEROL 2.5 MG/IPRATROPIUM 0.5 MG NEB (PRN) NEB (05:10)
[2017-08-22] MEDS: ALPRAZolam 0.5 MG TAB PO PRN ×2 (06:11→20:11)
[2017-08-22] MEDS: RESP: ALBUTEROL 2.5 MG/IPRATROPIUM 0.5 MG NEB (SCH) NEB ×3 (07:15→19:34)
[2017-08-22] MEDS: FLUoxetine HCL 20 MG CAP PO SCH ×2 (08:27→20:06)
[2017-08-22] MEDS: FUROSEMIDE 20 MG TAB PO SCH (08:27)
[2017-08-22] MEDS: HEPARIN SODIUM - SQ 10,000 UNITS/ML VIAL SQ SCH ×2 (08:27→20:07)
[2017-08-22] MEDS: ALBUTEROL SULFATE 90 MCG/ACT HFA 8 GM INHALER INH SCH ×4 (08:28→20:11)
[2017-08-22] MEDS: guaiFENesin E.R. 600 MG TAB PO SCH ×2 (08:28→20:06)
[2017-08-22] MEDS: CLOPIDOGREL 75 MG TAB PO SCH (08:28)
[2017-08-22] MEDS: LOSARTAN 50 MG TAB PO SCH (08:28)
[2017-08-22] MEDS: BUDESONIDE-FORMOTEROL 160/4.5 MCG INHALER INH SCH ×2 (08:28→20:11)
[2017-08-22] MEDS: DOCUSATE SODIUM 50 MG/SENNA 8.6 MG TAB PO SCH ×2 (08:28→20:06)
[2017-08-22] MEDS: TIOTROPIUM BROMIDE 18 MCG INH INH SCH (08:29)
[2017-08-22] MEDS: SODIUM CHLORIDE 0.9% FLUSH 10 ML FLUSH IV FLUSH SCH ×2 (08:33→20:05)
[2017-08-22] MEDS: ACETAMINOPHEN/HYDROcodone 325 MG/5 MG TAB PO PRN ×2 (10:43→20:07)
--- NOTE | 2017-08-22 14:11 | HHI.PR ---
Subjective Remarks Patient has complaints of left gluteal pain, no other complaints. Her breathing is slowly improving but she remains oxygen dependent. Decreased edema. Objective Vital Signs Date Time Temp Pulse Resp B/P (MAP) Pulse Ox O2 Delivery O2 Flow Rate FiO2 08/22/17 13:00 50 39 90 08/22/17 12:00 52 08/22/17 12:00 98.5 42 16 96 08/22/17 11:00 42 18 95 08/22/17 10:00 84 36 95 08/22/17 09:00 76 33 95 08/22/17 08:00 98.3 72 16 176/63 (100) 96 08/22/17 08:00 72 08/22/17 07:17 99 Nasal Cannula 2.00 08/22/17 07:14 76 38 182/73 (109) 97 08/22/17 07:00 74 25 191/48 (95) 94 08/22/17 06:00 74 08/22/17 06:00 72 30 169/64 (99) 95 08/22/17 04:00 98.6 72 29 140/50 (80) 96 08/22/17 04:00 72 08/22/17 03:00 70 15 144/58 (86) 95 08/22/17 02:00 72 08/22/17 02:00 72 15 127/54 (78) 95 08/22/17 01:00 76 15 137/60 (85) 96 08/22/17 00:00 82 08/22/17 00:00 97.9 44 16 127/48 (74) 96 08/21/17 22:00 82 08/21/17 22:00 82 33 138/52 (80) 95 08/21/17 21:00 50 36 165/59 (94) 95 08/21/17 20:00 46 08/21/17 20:00 98.8 46 32 145/62 (89) 96 08/21/17 19:45 96 Nasal Cannula 2.00 08/21/17 19:00 44 38 159/57 (91) 96 08/21/17 17:00 45 08/21/17 16:05 78 08/21/17 16:00 46 47 140/62 (88) 95 08/21/17 15:51 20 08/21/17 15:30 62 08/21/17 15:00 98.0 42 14 140/68 (92) 97 08/21/17 14:15 42 I/O 08/21/17 08/21/17 08/21/17 08/22/17 08/22/17 08/22/17 07:00 15:00 23:00 07:00 15:00 23:00 Intake Total 240 ml 1000 ml 420 ml Output Total 1000 ml Balance 240 ml 0 ml 420 ml Intake Oral 240 ml 1000 ml 420 ml Output Urine Total 1000 ml # Voids 5 4 # Bowel Movements 0 1 Result Diagram: 08/21/17 0845 08/21/17 0845 Objective Remarks GENERAL: NAD, A&Ox3 HEAD: Normocephalic. NECK: Supple, trachea midline. No lymphadenopathy. EYES: No scleral icterus. No injection or drainage. CARDIOVASCULAR: Regular rate and rhythm without murmurs, gallops, or rubs. RESPIRATORY: Breath sounds equal bilaterally. No accessory muscle use. Bilateral pulmonary edema. GASTROINTESTINAL: Abdomen soft, non-tender, nondistended. MUSCULOSKELETAL: No cyanosis, or edema. SKIN: Warm and dry. NEURO: No focal neurological deficitis. A/P Problem List: (1) COPD with acute exacerbation ICD Code: J44.1 - Chronic obstructive pulmonary disease with (acute) exacerbation (2) Hypertension ICD Code: I10 - Essential (primary) hypertension (3) Bradycardia ICD Code: R00.1 - Bradycardia, unspecified (4) CHF exacerbation ICD Code: I50.9 - Heart failure, unspecified Status: Acute (5) Leukocytosis ICD Code: D72.829 - Elevated white blood cell count, unspecified Status: Acute Assessment and Plan 66-year-old female admitted secondary to CHF exacerbation, related to bronchitis. CHF exacerbation Continue Lasix Monitor for improvement Monitor fluid balance Sleep study as an outpatient recommended COPD exacerbation Outpatient treatment failure Bronchitis Continue Levaquin Continue oxygen supplementation Bradycardia Improving Cardiology has cleared this patient in this regard No further workup needed Continue to monitor on telemetry Avoid rate slowing agents May be modulated by her present inflammation and CHF exacerbation Hypertension Continue baseline treatment Follow blood pressures Adjust treatments as needed DVT prophylaxis Continue heparin Problem Qualifiers (1) CHF exacerbation: Qualified Codes: I50.33 - Acute on chronic diastolic (congestive) heart failure (2) Leukocytosis: Qualified Codes: D72.829 - Elevated white blood cell count, unspecified Dano Castro MD Aug 22, 2017 14:11
[2017-08-22] MEDS ORDERED: NAPROXEN 250 MG TAB PO ONE (14:15)
[2017-08-22] MEDS: LEVOFLOXACIN 750 MG PREMIX INJ 150 ML IV SCH (15:51)
--- NOTE | 2017-08-22 18:01 | HHI.PR ---
Subjective Remarks Feels better today but has some wheezing. On O2 2 L. No chest pain . C/O Leg pains from sciatica. Objective Vital Signs Date Time Temp Pulse Resp B/P (MAP) Pulse Ox O2 Delivery O2 Flow Rate FiO2 08/22/17 16:00 78 19 94 08/22/17 16:00 52 08/22/17 15:00 78 24 95 08/22/17 14:00 46 45 96 08/22/17 13:00 50 39 90 08/22/17 12:00 52 08/22/17 12:00 98.5 42 16 96 08/22/17 11:00 42 18 95 08/22/17 10:00 84 36 95 08/22/17 09:00 76 33 95 08/22/17 08:00 98.3 72 16 176/63 (100) 96 08/22/17 08:00 72 08/22/17 07:17 99 Nasal Cannula 2.00 08/22/17 07:14 76 38 182/73 (109) 97 08/22/17 07:00 74 25 191/48 (95) 94 08/22/17 06:00 74 08/22/17 06:00 72 30 169/64 (99) 95 08/22/17 04:00 98.6 72 29 140/50 (80) 96 08/22/17 04:00 72 08/22/17 03:00 70 15 144/58 (86) 95 08/22/17 02:00 72 08/22/17 02:00 72 15 127/54 (78) 95 08/22/17 01:00 76 15 137/60 (85) 96 08/22/17 00:00 82 08/22/17 00:00 97.9 44 16 127/48 (74) 96 08/21/17 22:00 82 08/21/17 22:00 82 33 138/52 (80) 95 08/21/17 21:00 50 36 165/59 (94) 95 08/21/17 20:00 46 08/21/17 20:00 98.8 46 32 145/62 (89) 96 08/21/17 19:45 96 Nasal Cannula 2.00 08/21/17 19:00 44 38 159/57 (91) 96 I/O 08/21/17 08/21/17 08/21/17 08/22/17 3/27/18 3/27/18 07:00 15:00 23:00 07:00 15:00 23:00 Intake Total 240 ml 1000 ml 420 ml Output Total 1000 ml Balance 240 ml 0 ml 420 ml Intake Oral 240 ml 1000 ml 420 ml Output Urine Total 1000 ml # Voids 5 4 # Bowel Movements 0 1 Result Diagram: 08/21/17 0845 08/21/17 0845 Objective Remarks Alert and breathing easy. HEAD AND NECK: Atraumatic, normocephalic. Trachea midline. LUNGS: Mild expiratory wheezing and no crackles. HEART: S1, S2, bradycardic. ABDOMEN: Soft, nontender, slightly obese.Multiple scars. EXTREMITIES: Trace edema. No cyanosis. NEUROLOGIC: Alert, oriented x 3, moves all extremities. Assessment and Plan Assessment and Plan ASSESSMENT AND PLAN: 1. Congestive heart failure exacerbation. 2. Chronic obstructive pulmonary disease with likely acute exacerbation. 3. Multiple subcentimeter pulmonary nodules. 4. Hypernatremia. Plan : 1. O2 2 L PRN 2. Taper solumedrol to 40 mg BID 3. Duonebs qid. 4. Continue Lasix 40 mg daily 5. Symbicort 160/4.5 mcg , 2 puffs bid 6. PFT in am 7. Transfer to tele 8. Cont Levaquin 750 mg daily Tan Muhammad MD Aug 22, 2017 18:01
[2017-08-22] MEDS: NAPROXEN 250 MG TAB PO SCH ×2 (20:00→20:06)
[2017-08-22] MEDS: NITROGLYCERIN 0.4 MG SL 25 TABS/BTL SL PRN (23:04)
[2017-08-22 23:47] LABS: TROPONIN I 0.08 NG/ML (0.02-0.05)
[2017-08-23] VITALS (8 sets, daily range): BP systolic 126–222; BP diastolic 58–86; PULSE 68–73; RESP 12–20; TEMP 96.4–99; O2SAT 92–97
[2017-08-23] MEDS: cloNIDine HCL 0.1 MG TAB PO PRN (05:09)
[2017-08-23] MEDS: ACETAMINOPHEN/HYDROcodone 325 MG/5 MG TAB PO PRN ×3 (05:09→21:06)
[2017-08-23 05:39] LABS: BASOPHIL % 0.1 % (0.0-2.0); HEMATOCRIT 36.4 % (35.0-46.0); HEMOGLOBIN 11.5 GM/DL (11.6-15.3); LYMPH % 6.3 % (9.0-44.0); LYMPHOCYTE # 1.2 TH/MM3 (1.0-4.8); MEAN CELL VOLUME 84.4 FL (80.0-100.0); MEAN CORPUSCULAR HEMOGLOBIN 26.7 PG (27.0-34.0); MEAN CORPUSCULAR HGB CONC 31.6 % (32.0-36.0); MEAN PLATELET VOLUME 8.8 FL (7.0-11.0); MONO % 6.5 % (0.0-8.0); MONOCYTE # 1.3 TH/MM3 (0-0.9); NEUT % 87.1 % (16.0-70.0); PLATELET COUNT 234 TH/MM3 (150-450); RED BLOOD COUNT 4.31 MIL/MM3 (4.00-5.30); RED CELL DISTRIBUTION WIDTH 14.6 % (11.6-17.2); WHITE BLOOD COUNT 19.5 TH/MM3 (4.0-11.0)
[2017-08-23 05:56] LABS: TROPONIN I 0.07 NG/ML (0.02-0.05)
[2017-08-23 06:04] LABS: CHLORIDE 106 MEQ/L (98-107); SODIUM (NA) 140 MEQ/L (136-145)
[2017-08-23 06:07] LABS: ALBUMIN 2.8 GM/DL (3.4-5.0); BICARBONATE 28.1 MEQ/L (21.0-32.0); CALCIUM 8.3 MG/DL (8.5-10.1); GLUCOSE,RANDOM 104 MG/DL (74-106)
[2017-08-23 06:08] LABS: BLOOD UREA NITROGEN 27 MG/DL (7-18)
[2017-08-23 06:10] LABS: ALT (GPT) 43 U/L (10-53)
[2017-08-23 06:11] LABS: AST (GOT) 54 U/L (15-37); GLOMERULAR FILTRATION RATE 55 ML/MIN (>89)
[2017-08-23 06:12] LABS: TOTAL BILIRUBIN ADULT 0.2 MG/DL (0.2-1.0)
[2017-08-23 06:13] LABS: ALKALINE PHOSPHATASE 62 U/L (45-117)
[2017-08-23] MEDS: RESP: ALBUTEROL 2.5 MG/IPRATROPIUM 0.5 MG NEB (SCH) NEB ×2 (07:18→13:48)
[2017-08-23] MEDS: NITROGLYCERIN 0.4 MG SL 25 TABS/BTL SL PRN (08:00)
[2017-08-23] MEDS: ALPRAZolam 0.5 MG TAB PO PRN ×2 (08:01→21:03)
[2017-08-23] MEDS: guaiFENesin E.R. 600 MG TAB PO SCH ×2 (08:03→21:03)
[2017-08-23] MEDS: HEPARIN SODIUM - SQ 10,000 UNITS/ML VIAL SQ SCH ×2 (08:03→21:04)
[2017-08-23] MEDS: methylPREDNISolone SOD SUCC 40 MG/1 ML VIAL IV PUSH SCH (08:03)
[2017-08-23] MEDS: FLUoxetine HCL 20 MG CAP PO SCH ×2 (08:03→21:03)
[2017-08-23] MEDS: DOCUSATE SODIUM 50 MG/SENNA 8.6 MG TAB PO SCH ×2 (08:03→21:03)
[2017-08-23] MEDS: NAPROXEN 250 MG TAB PO SCH ×2 (08:03→21:03)
[2017-08-23] MEDS: CLOPIDOGREL 75 MG TAB PO SCH (08:03)
[2017-08-23] MEDS: SODIUM CHLORIDE 0.9% FLUSH 10 ML FLUSH IV FLUSH SCH ×2 (08:04→21:04)
[2017-08-23] MEDS: LOSARTAN 50 MG TAB PO SCH (08:04)
[2017-08-23] MEDS: FUROSEMIDE 20 MG TAB PO SCH (08:04)
[2017-08-23] MEDS: BUDESONIDE-FORMOTEROL 160/4.5 MCG INHALER INH SCH ×2 (08:08→21:02)
[2017-08-23] MEDS: ALBUTEROL SULFATE 90 MCG/ACT HFA 8 GM INHALER INH SCH ×4 (08:08→21:00)
[2017-08-23] MEDS: TIOTROPIUM BROMIDE 18 MCG INH INH SCH (08:08)
[2017-08-23] MEDS ORDERED: IOHEXOL 350 MG/ML 10 ML VIAL (for RAD DIAG) IVCONTRAST ONE (10:58)
--- NOTE | 2017-08-23 11:35 | RADRPT ---
EXAM DATE/TIME: 08/23/2017 09:46 [facility] COMPARISON: No previous studies available for comparison. INDICATIONS : Low pressure at left leg and claudication at left gluteus. Evaluate for obstruction. IV CONTRAST: 100 cc Omnipaque 350 (iohexol) IV RADIATION DOSE: 11.96 CTDIvol (mGy) MEDICAL HISTORY : Aneurysm, abdominal. Deep venous thrombosis. Chronic obstructive pulmonary disease.Hypertension. Co ngestive heart failure. SURGICAL HISTORY : Colon resection. Abdominal aortic aneurysm repair.Appendectomy.Cholecystectomy. Bovine valve repair. Femoral stent. ENCOUNTER: Initial ACUITY: 1 day PAIN SCALE: 6/10 LOCATION: Left leg TECHNIQUE: Volumetric scanning was performed using a multi-row detector CT scanner. The data was post processed with a variety of visualization algorithms including full volume maximum intensity projection, multi -planar sliding thin slab reformation, curved planar reformation, and surface rendering techniques. Using automated exposure control and adjustment of the mA and/or kV according to patient size, radiat ion dose was kept as low as reasonably achievable to obtain optimal diagnostic quality images. DICO M format image data is available electronically for review and comparison. FINDINGS: The patient has undergone previous open aortic aneurysm repair with placement of an aorto bi-iliac gr aft. The trunk portion of the graft is widely patent. There is a low density filling defect in the le ft limb of the graft which significant compromises the iliac flow lumen. The right limb is widely pat ent. Below the anastomoses, the left external iliac is small in caliber but focally disease-free very mild eccentric calcific disease in the contralateral right distal external iliac. The common femoral arteries are small in caliber with mild posterior plaquing noted. In the legs, profundas are patent bilaterally. Runoff is intact in satisfactory bilaterally throughou t. 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 The renal arteries are patent bilaterally. Elsewhere on the exam, note is made of mild atelectasis in the lung bases bilaterally and small pleur al effusions. 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 Terry Polanco MD on August 23, 2017 at 11:21 Board Certified Radiologist. This report was verified electronically.
[2017-08-23 12:03] LABS: TROPONIN I 0.06 NG/ML (0.02-0.05)
[2017-08-23] MEDS: LEVOFLOXACIN 750 MG PREMIX INJ 150 ML IV SCH (13:08)
[2017-08-23] MEDS: ENALAPRILAT 1.25 MG/ML VIAL IV PUSH PRN (16:26)
--- NOTE | 2017-08-23 16:34 | EKG ---
Date Performed: 08/23/2017 Time Performed: 11:30:01 PTAGE: 66 years EKG: Sinus rhythm POSSIBLE LEFT ATRIAL ENLARGEMENT INCOMPLETE RIGHT BUNDLE BRANCH BLOCK NONSPECIFIC ST & T-WAVE ABNORM ALITY ABNORMAL ECG PREVIOUS TRACING : 08/23/2017 04.54 Since the previous tracing, no significant change noted DOCTOR: Abby Vazquez Interpretating Date/Time 08/23/2017 16:32:59
--- NOTE | 2017-08-23 17:23 | HHI.PR ---
Subjective Remarks Chest pain overnight. Cardiac enzymes were trended. Slight elevation in cardiac enzymes but this would be expected with her CHF exacerbation also. She has been using nitroglycerin to control the pain. Pain is improving when seen. Negative ACS workup thus far. Plan is for stress testing tomorrow. CTA runoff of lower extremities performed today and there is a hypodense mass which is suggestive of hyperplasia versus thrombus. Patient is asked if she would like a vascular surgery consult, she would like to discuss this with her family. Previously she had a preference to deal with her doctors in [place]. Objective Vital Signs Date Time Temp Pulse Resp B/P (MAP) Pulse Ox O2 Delivery O2 Flow Rate FiO2 08/23/17 16:00 96.8 68 14 191/77 (115) 93 08/23/17 14:20 18 08/23/17 12:07 99.0 73 12 147/85 (105) 92 08/23/17 11:55 Nasal Cannula 2.00 21 08/23/17 08:47 96.9 73 20 222/86 (131) 97 08/23/17 08:16 18 08/23/17 07:21 93 Nasal Cannula 2.00 08/23/17 04:45 96 Nasal Cannula 2.00 08/23/17 04:00 97.0 72 20 175/74 (107) 94 08/22/17 23:15 175/74 (107) 08/22/17 23:00 97.4 82 22 191/79 (116) 96 08/22/17 22:55 96 Nasal Cannula 2.00 08/22/17 21:06 81 08/22/17 21:00 93 Room Air 08/22/17 20:00 79 08/22/17 20:00 98.4 79 18 168/60 (96) 95 08/22/17 20:00 96.5 79 20 130/58 (82) 93 08/22/17 19:35 93 21 I/O 08/22/17 08/22/17 08/22/17 08/23/17 08/23/17 08/23/17 07:00 15:00 23:00 07:00 15:00 23:00 Intake Total 420 ml 520 ml 240 ml 1318 ml Output Total 600 ml Balance 420 ml 520 ml -360 ml 1318 ml Intake Oral 420 ml 520 ml 240 ml 1318 ml Output Urine Total 600 ml # Voids 4 4 # Bowel Movements 2 Result Diagram: 08/23/17 0515 08/23/17 0515 Objective Remarks GENERAL: NAD, A&Ox3 HEAD: Normocephalic. NECK: Supple, trachea midline. No lymphadenopathy. EYES: No scleral icterus. No injection or drainage. CARDIOVASCULAR: Regular rate and rhythm without murmurs, gallops, or rubs. RESPIRATORY: Breath sounds equal bilaterally. No accessory muscle use. Bilateral pulmonary edema. GASTROINTESTINAL: Abdomen soft, non-tender, nondistended. MUSCULOSKELETAL: No cyanosis, or edema. SKIN: Warm and dry. NEURO: No focal neurological deficitis. A/P Problem List: (1) COPD with acute exacerbation ICD Code: J44.1 - Chronic obstructive pulmonary disease with (acute) exacerbation (2) Hypertension ICD Code: I10 - Essential (primary) hypertension (3) Bradycardia ICD Code: R00.1 - Bradycardia, unspecified (4) CHF exacerbation ICD Code: I50.9 - Heart failure, unspecified Status: Acute (5) Leukocytosis ICD Code: D72.829 - Elevated white blood cell count, unspecified Status: Acute Assessment and Plan 66-year-old female admitted secondary to CHF exacerbation, related to bronchitis. Chest pain Negative evaluation for ACS Follow cardiac enzymes Aspirin daily When necessary oxygen When necessary morphine for pain. When necessary nitroglycerin Follow on telemetry Plan for stress test Nothing by mouth after midnight CHF exacerbation Continue Lasix Monitor for improvement Monitor fluid balance Sleep study as an outpatient recommended COPD exacerbation Outpatient treatment failure Bronchitis Continue Levaquin Continue oxygen supplementation Bradycardia Improving Cardiology has cleared this patient in this regard No further workup needed Continue to monitor on telemetry Avoid rate slowing agents May be modulated by her present inflammation and CHF exacerbation Hypertension Continue baseline treatment Follow blood pressures Adjust treatments as needed DVT prophylaxis Continue heparin Problem Qualifiers (1) CHF exacerbation: Qualified Codes: I50.33 - Acute on chronic diastolic (congestive) heart failure (2) Leukocytosis: Qualified Codes: D72.829 - Elevated white blood cell count, unspecified Dano Castro MD Aug 23, 2017 17:23
--- NOTE | 2017-08-23 17:34 | HHI.PR ---
Subjective Remarks Feels better today but has less wheezing. On O2 2 L. but keeps it off No chest pain . C/O Leg pains from Vascular obstruction Objective Vital Signs Date Time Temp Pulse Resp B/P (MAP) Pulse Ox O2 Delivery O2 Flow Rate FiO2 08/23/17 16:00 96.8 68 14 191/77 (115) 93 08/23/17 14:20 18 08/23/17 12:07 99.0 73 12 147/85 (105) 92 08/23/17 11:55 Nasal Cannula 2.00 21 08/23/17 08:47 96.9 73 20 222/86 (131) 97 08/23/17 08:16 18 08/23/17 07:21 93 Nasal Cannula 2.00 08/23/17 04:45 96 Nasal Cannula 2.00 08/23/17 04:00 97.0 72 20 175/74 (107) 94 08/22/17 23:15 175/74 (107) 08/22/17 23:00 97.4 82 22 191/79 (116) 96 08/22/17 22:55 96 Nasal Cannula 2.00 08/22/17 21:06 81 08/22/17 21:00 93 Room Air 08/22/17 20:00 79 08/22/17 20:00 98.4 79 18 168/60 (96) 95 08/22/17 20:00 96.5 79 20 130/58 (82) 93 08/22/17 19:35 93 21 I/O 08/22/17 08/22/17 08/22/17 08/23/17 08/23/17 08/23/17 06:59 14:59 22:59 06:59 14:59 22:59 Intake Total 420 ml 520 ml 240 ml 1318 ml Output Total 600 ml Balance 420 ml 520 ml -360 ml 1318 ml Intake Oral 420 ml 520 ml 240 ml 1318 ml Output Urine Total 600 ml # Voids 4 4 # Bowel Movements 2 Result Diagram: 08/23/17 0515 08/23/17 0515 Objective Remarks Alert and breathing easy. HEAD AND NECK: Atraumatic, normocephalic. Trachea midline. LUNGS: No wheezing and no crackles. HEART: S1, S2, bradycardic. ABDOMEN: Soft, nontender, slightly obese.Multiple scars. EXTREMITIES: No edema. No cyanosis.Poor pulses NEUROLOGIC: Alert, oriented x 3, moves all extremities. Assessment and Plan Assessment and Plan ASSESSMENT AND PLAN: 1. Congestive heart failure exacerbation. 2. Chronic obstructive pulmonary disease with likely acute exacerbation. 3. Multiple subcentimeter pulmonary nodules. 4. Hypernatremia. Plan : 1. O2 2 L PRN 2. D/C solumedrol 3. Duonebs qid. 4. Continue Lasix 20 mg daily 5. Symbicort 160/4.5 mcg , 2 puffs bid 6. Add Prednisone 20 mg BID a nd taper over 2 weeks 7. Home soon 8. Cont Levaquin 750 mg daily X3 9. 6 Min walk test for O2 Tan Muhammad MD Aug 23, 2017 17:34
[2017-08-23] MEDS ORDERED: FUROSEMIDE 20 MG/2 ML VIAL IV PUSH ONE (20:00)
[2017-08-23] MEDS: RESP: ALBUTEROL 2.5 MG/IPRATROPIUM 0.5 MG NEB (PRN) NEB (20:11)
[2017-08-23] MEDS: predniSONE 20 MG TAB PO SCH (21:03)
--- NOTE | 2017-08-23 22:18 | EKG ---
Date Performed: 08/23/2017 Time Performed: 04:54:15 PTAGE: 66 years EKG: Sinus rhythm POSSIBLE LEFT ATRIAL ENLARGEMENT INCOMPLETE RIGHT BUNDLE BRANCH BLOCK NONSPECIFIC T-WAVE ABNORMALITY ABNORMAL R WAVE PROGRESSION ABNORMAL ECG PREVIOUS TRACING : 08/22/2017 22.59 Since the previous tracing, no significant change noted DOCTOR: Abby Vazquez Interpretating Date/Time 08/23/2017 22:16:40
--- NOTE | 2017-08-23 22:35 | EKG ---
Date Performed: 08/22/2017 Time Performed: 22:59:15 PTAGE: 66 years EKG: Sinus rhythm LEFT ATRIAL ENLARGEMENT INCOMPLETE RIGHT BUNDLE BRANCH BLOCK NONSPECIFIC T-WAVE ABNORMALITY ABNORMAL ECG PREVIOUS TRACING : 08/19/2017 10.11 Compared to previous tracing, AV block no longer present DOCTOR: Abby Vazquez Interpretating Date/Time 08/23/2017 22:35:08
[2017-08-24] VITALS: BP 124/51; PULSE 71; RESP 18; TEMP 96.9; O2SAT 92
[2017-08-24] MEDS ORDERED: SODIUM CHLOR 0.9% 1000 ML INJ 1,000 ML IV SCH
[2017-08-24] MEDS: ACETAMINOPHEN/HYDROcodone 325 MG/5 MG TAB PO PRN ×2 (01:23→08:08)
[2017-08-24 04:00] VITALS: BP 149/65; PULSE 62; RESP 16; TEMP 96.4; O2SAT 90
[2017-08-24 06:40] LABS: AUTOMATED NEUTROPHIL # 12.6 TH/MM3 (1.8-7.7); BASOPHIL % 0.1 % (0.0-2.0); CHLORIDE 103 MEQ/L (98-107); EOSINOPHIL % 0.2 % (0.0-4.0); HEMATOCRIT 36.7 % (35.0-46.0); HEMOGLOBIN 11.9 GM/DL (11.6-15.3); LYMPH % 9.1 % (9.0-44.0); LYMPHOCYTE # 1.3 TH/MM3 (1.0-4.8); MEAN CELL VOLUME 84.2 FL (80.0-100.0); MEAN CORPUSCULAR HEMOGLOBIN 27.5 PG (27.0-34.0); MEAN CORPUSCULAR HGB CONC 32.6 % (32.0-36.0); MEAN PLATELET VOLUME 9.2 FL (7.0-11.0); MONO % 5.1 % (0.0-8.0); MONOCYTE # 0.7 TH/MM3 (0-0.9); NEUT % 85.5 % (16.0-70.0); PLATELET COUNT 234 TH/MM3 (150-450); RED BLOOD COUNT 4.35 MIL/MM3 (4.00-5.30); RED CELL DISTRIBUTION WIDTH 14.6 % (11.6-17.2); SODIUM (NA) 140 MEQ/L (136-145); WHITE BLOOD COUNT 14.6 TH/MM3 (4.0-11.0)
[2017-08-24 06:49] LABS: AST (GOT) 55 U/L (15-37); BICARBONATE 30.2 MEQ/L (21.0-32.0); BLOOD UREA NITROGEN 32 MG/DL (7-18); GLUCOSE,RANDOM 96 MG/DL (74-106)
[2017-08-24 06:51] LABS: ALT (GPT) 42 U/L (10-53); TOTAL BILIRUBIN ADULT 0.3 MG/DL (0.2-1.0)
[2017-08-24 06:52] LABS: ALKALINE PHOSPHATASE 61 U/L (45-117); GLOMERULAR FILTRATION RATE 45 ML/MIN (>89)
[2017-08-24 07:24] VITALS: O2SAT 95
[2017-08-24] MEDS: NAPROXEN 250 MG TAB PO SCH (08:00)
[2017-08-24] MEDS: BUDESONIDE-FORMOTEROL 160/4.5 MCG INHALER INH SCH (08:02)
[2017-08-24] MEDS: HEPARIN SODIUM - SQ 10,000 UNITS/ML VIAL SQ SCH (08:05)
[2017-08-24] MEDS: ENALAPRILAT 1.25 MG/ML VIAL IV PUSH PRN (08:05)
[2017-08-24] MEDS: LOSARTAN 50 MG TAB PO SCH (08:06)
[2017-08-24] MEDS: DOCUSATE SODIUM 50 MG/SENNA 8.6 MG TAB PO SCH (08:06)
[2017-08-24] MEDS: guaiFENesin E.R. 600 MG TAB PO SCH (08:06)
[2017-08-24] MEDS: CLOPIDOGREL 75 MG TAB PO SCH (08:06)
[2017-08-24] MEDS: ALPRAZolam 0.5 MG TAB PO PRN (08:06)
[2017-08-24] MEDS: FLUoxetine HCL 20 MG CAP PO SCH (08:07)
[2017-08-24] MEDS: TIOTROPIUM BROMIDE 18 MCG INH INH SCH (08:18)
[2017-08-24] MEDS: SODIUM CHLORIDE 0.9% FLUSH 10 ML FLUSH IV FLUSH SCH (08:25)
[2017-08-24] MEDS: ALBUTEROL SULFATE 90 MCG/ACT HFA 8 GM INHALER INH SCH ×2 (08:25→12:19)
[2017-08-24 08:26] VITALS: BP 196/85; PULSE 62; RESP 18; TEMP 96.6; O2SAT 94
[2017-08-24] MEDS: predniSONE 20 MG TAB PO SCH (08:32)
[2017-08-24] MEDS ORDERED: LEVOFLOXACIN 750 MG TAB PO SCH (09:00)
[2017-08-24] MEDS ORDERED: FUROSEMIDE 20 MG TAB PO SCH (09:00)
[2017-08-24] MEDS ORDERED: REGADENOSON INJ 0.4 MG/5 ML SYR IV ONE (10:34)
--- NOTE | 2017-08-24 11:54 | RADRPT ---
EXAM DATE/TIME: 08/24/2017 10:18 [facility] COMPARISON: No previous studies available for comparison. INDICATIONS : Chest pain for 1 day. Angina. Congestive heart failure. DOSE: 30.2 mCi Tc99m Myoview at stress. 10.1 mCi Tc99m Myoview at rest. 0.4 mg Lexiscan STRESS SYMPTOMS: None noted. EJECTION FRACTION: 54% MEDICAL HISTORY : Hypertension. SURGICAL HISTORY : Abdominal aortic aneurysm repair. Cholecystectomy. Colon resection. Bovine valve. ENCOUNTER: Initial ACUITY: 1 day PAIN SCALE: 3/10 LOCATION: Midsternal chest TECHNIQUE: The patient underwent pharmacologic stress with infusion of prescribed dose. Continuous ECG tracing was monitored during stress. Gated SPECT imaging was performed after stress and conventional SPECT i maging was performed at rest. The examination was performed on a SPECT/CT scanner, both attenuation and non-corrected datasets were reviewed. FINDINGS: DISTRIBUTION: The maximum perfused segment at stress is in the lateral wall. PERFUSION STUDY: The pattern of perfusion at stress is within normal limits. GATED STUDY: There is intact wall motion and thickening without hypokinetic or dyskinetic segments. CONCLUSION: Unremarkable myocardial perfusion exam. RISK CATEGORY: Low Darell Cooley MD on August 24, 2017 at 11:51 Board Certified Radiologist. This report was verified electronically.
[2017-08-24 12:29] VITALS: BP 172/84; PULSE 65; RESP 16; TEMP 95.6; O2SAT 93
[2017-08-24] MEDS: cloNIDine HCL 0.1 MG TAB PO PRN (12:35)
[2017-08-24] MEDS ORDERED: LACTTAB8 PO (13:07)
[2017-08-24] MEDS ORDERED: LEVA750T9 PO (13:07)
[2017-08-24] MEDS ORDERED: HYDR-3516 PO (13:57)
[2017-08-24] MEDS ORDERED: CLON0.1T PO (14:18)
[2017-08-24] MEDS ORDERED: BLOOD PRESSURE1 M20 (14:18)
[2017-08-24] MEDS ORDERED: PRED5PAK PO (14:18)
--- NOTE | 2017-08-24 18:01 | HHI.DS ---
Discharge Summary Admission Date Aug 19, 2017 at 13:58 Discharge Date: Aug 24, 2017 Admitting Diagnosis (1) CHF exacerbation ICD Code: I50.9 - Heart failure, unspecified Diagnosis: Principal Status: Acute (2) COPD with acute exacerbation ICD Code: J44.1 - Chronic obstructive pulmonary disease with (acute) exacerbation Diagnosis: Principal (3) Bradycardia ICD Code: R00.1 - Bradycardia, unspecified Diagnosis: Principal (4) Hypertension ICD Code: I10 - Essential (primary) hypertension Diagnosis: Principal Procedures None Brief History - From Admission This is a 66-year-old female patient with a known medical history of AAA, hypertension, COPD and history of DVT who presented to the ED with complaints of worsening shortness of breath and worsening right lower extremity edema. Patient states that roughly 1 week ago she began to notice increasing swelling in her right leg and worsening abdominal distention. She states that last Monday she visited her primary care doctor due to these complaints and was given antibiotics and prednisone, which was finished yesterday. Despite these medications patient has continued shortness of breath and cough. Patient does admit to history of CHF and on Lasix 40 mg daily. It should be noted that patient did travel from [place] via airplane last week and with continued complaint of right lower extremity swelling. Patient denies any recent illness including fever, chills, abdominal pain, nausea, vomiting or diarrhea. She does state that she has a history of AAA repair and bovine valve replacement. She also has a history of left upper extremity DVT. Currently takes Plavix. On presentation patient is on nasal cannula 3 L, with noted accessory muscle use , right lower extremity swelling and abdominal distention. Patient is sinus bradycardia on the monitor with heart rate in the 40s, denies any history of low heart rate. CBC/BMP: 08/24/17 0500 08/24/17 0500 Significant Findings Laboratory Tests Test 08/22/17 23:15 08/23/17 05:15 08/23/17 11:18 08/24/17 05:00 Troponin I 0.08 NG/ML (0.02-0.05) 0.07 NG/ML (0.02-0.05) 0.06 NG/ML (0.02-0.05) White Blood Count 19.5 TH/MM3 (4.0-11.0) 14.6 TH/MM3 (4.0-11.0) Hemoglobin 11.5 GM/DL (11.6-15.3) Mean Corpuscular Hemoglobin 26.7 PG (27.0-34.0) Mean Corpuscular Hemoglobin Concent 31.6 % (32.0-36.0) Neutrophils (%) (Auto) 87.1 % (16.0-70.0) 85.5 % (16.0-70.0) Lymphocytes (%) (Auto) 6.3 % (9.0-44.0) Neutrophils # (Auto) 17.0 TH/MM3 (1.8-7.7) 12.6 TH/MM3 (1.8-7.7) Monocytes # (Auto) 1.3 TH/MM3 (0-0.9) Blood Urea Nitrogen 27 MG/DL (7-18) 32 MG/DL (7-18) Total Protein 6.0 GM/DL (6.4-8.2) 6.0 GM/DL (6.4-8.2) Albumin 2.8 GM/DL (3.4-5.0) 3.0 GM/DL (3.4-5.0) Calcium Level 8.3 MG/DL (8.5-10.1) 8.0 MG/DL (8.5-10.1) Aspartate Amino Transf (AST/SGOT) 54 U/L (15-37) 55 U/L (15-37) Estimat Glomerular Filtration Rate 55 ML/MIN (>89) 45 ML/MIN (>89) Creatinine 1.20 MG/DL (0.50-1.00) PE at Discharge GENERAL: Well-developed, well-nourished patient on 2 L nasal cannula SKIN: Warm and dry. Multiple scars on bilateral upper extremities. Abdominal scarring noted from prior surgeries. HEAD: Normocephalic. Atraumatic. EYES: Pupils equal and round. No scleral icterus. No injection or drainage. ENT: No nasal bleeding or discharge. Mucous membranes pink and moist. NECK: Supple. Trachea midline. CARDIOVASCULAR: Sinus bradycardia S1, S2 noted. 2 out of 6 systolic murmur RESPIRATORY: No accessory muscle use. Diminished breath sounds in bases. Breath sounds equal bilaterally. GASTROINTESTINAL: Abdomen round and distended. Hypoactive bowel sounds x4. MUSCULOSKELETAL: No obvious deformities. Extremities without clubbing, cyanosis , or edema. NEUROLOGICAL: Awake and alert. No obvious cranial nerve deficits. Motor grossly within normal limits. 5/5 muscle strength in bilateral upper and lower extremities. Normal speech. PSYCHIATRIC: Appropriate mood and affect; insight and judgment normal. Hospital Course Mrs. Harris is a 66-year-old female. She came into the hospital secondary to respiratory distress. Etiology for this with CHF exacerbation. Bronchitis is present and likely contributory to her CHF exacerbation. With extra diuresis she has improved. With antibiotics she has improvement in her bronchitis. She is weaned off oxygen and doing well. During this time she had chest pain. Chest pain was worked up and she was negative for preliminary ACS workup. She was stressed and has no positive findings on stress test. She also complains of left lateral leg pain focused at the left gluteus when she uses her leg or ambulates. This was found to be related to a partial obstruction at the left branch of her aortic aneurysm repair, hyperplasia versus thrombus. Risks of symptoms of thrombus discussed with patient including arterial obstruction of the distal limb. Patient was recommended to consult with vascular surgeon in our local surgeons were offered as a consult, patient prefers to discuss this with her vascular surgeon to [place] and declines offer for a vascular consult during this hospitalization. She is back to her previous baseline medically stable for discharge to home today. Pt Condition on Discharge: Stable Discharge Disposition: Discharge Home Discharge Time: <= 30 minutes Discharge Instructions DIET: Follow Instructions for: Heart Healthy Diet Activities you can perform: Regular-No Restrictions Follow up Referrals: Cardiology - 2 Weeks PCP Follow-up - 2 Weeks PCP Follow-up Vascular Surgery - 2 Weeks New Medications: Blood Pressure Kit/Arm Cuff (Blood Pressure Kit/Arm Cuff) 1 Mis Mis EA .XX DIRECTED for Blood Pressure Management, #1 0 Refills Clonidine (Clonidine) 0.1 Mg Tab 0.1 MG PO BID PRN for SBP> OR = 180, DBP> OR = 100, #30 TAB 0 Refills Lactobacillus Acidophilus (Lactobacillus Acidophilus) 1 Billion Cell Tab 1 TAB PO TIDAC for Nutritional Supplement, #15 TAB 0 Refills Prednisone (21) 5 mg tab Dose Pack (Prednisone (21) 5 mg tab Dose Pack) 5 Mg Dspk 5 MG PO DIRECTED for Inflammation, #1 DSPK 0 Refills Hydrocodone/Acetaminophen (Hydrocodone-Acetamin 5-325 mg) 5 Mg-325 Mg Tablet 1 TAB PO Q4H PRN for pain 1-10, #30 TAB Levofloxacin (Levaquin) 750 Mg Tablet 750 MG PO DAILY for Infection, #2 TAB Continued Medications: Alprazolam (Alprazolam) 0.5 Mg Tab 0.5 MG PO Q6H PRN for ANXIETY, TAB 0 Refills Cholecalciferol (D3 Super Strength) 2,000 Unit Cap 1000 UNITS PO DAILY for Nutritional Supplement, #30 CAP 0 Refills Clopidogrel (Clopidogrel) 75 Mg Tab 75 MG PO DAILY for Blood Clot Prevention, #30 TAB 0 Refills Cyanocobalamin (B-12) 100 Mcg Tab 100 MCG PO DAILY for Nutritional Supplement, #1 BOTTLE 0 Refills Cyanocobalamin (B-12) 1,000 Mcg Subl 1000 MCG SL DAILY for Nutritional Supplement, TAB.SL 0 Refills Fluoxetine (Fluoxetine) 40 Mg Cap 40 CAP PO BID, #30 CAP 0 Refills Fluticasone-Salmeterol Inh (Advair Diskus Inh) 250-50 Mcg/Blist Aer 1 PUFF INH BID, #1 INHALER 0 Refills Rinse mouth after use. Furosemide (Furosemide) 20 Mg Tab 20 MG PO BID, #60 TAB 0 Refills Ipratropium-Albuterol Inh (Combivent Respimat Inh) 20-100 Senior Care/Act Aero 1 PUFF INH QID for Asthma Management, #1 INHALER 0 Refills Losartan (Losartan) 100 Mg Tab 100 MG PO DAILY for Blood Pressure Management, #30 TAB 0 Refills Sopix-7-Tawg Ethyl Esters (Tofwx-6-Fmys Ethyl Esters) 1 Gm Cap 1 GM PO DAILY for Manage Triglycerides, #120 CAP 0 Refills Promethazine-Codeine Liq (Promethazine-Codeine Liq) 6.25-10 Mg/5 Ml Syrp 5 ML PO Q6H PRN for COUGH AND/OR COLD SYMPTOMS, ML 0 Refills Dano Castro MD Aug 24, 2017 18:01
--- NOTE | 2017-08-31 10:35 | RSPPFT ---
DATE OF PROCEDURE: 08/23/17 COMMENTS: Spirometry demonstrates an FEV1 of 1.0 at 44% of predicted, FVC of 2.5 at 87%, FEV1/FVC ratio at 39%. The FEF 25-75 is 15% of predicted. Post-bronchodilator study demonstrated no significant change. Lung volumes were not completed. Flow volume loops suggest severe obstruction. IMPRESSION: 1. Severe obstructive disease. 2. No significant change following use of bronchodilator.
== END 2017-08-24 15:55 | disposition home or self-care (01) | DRG 190 ==
LOC: PHED 09:35 → PHEDA 13:11 → OBSVTOIN 13:58 → PHICU 15:31 → PH3A 08-22 20:42
PROVIDERS: ADMIT Hospitalist; ATTEND Hospitalist
DX: J44.1 Chronic obstructive pulmonary disease with (acute) exacerbation (principal); I50.33 Acute on chronic diastolic (congestive) heart failure; J96.00 Acute respiratory failure, unspecified whether with hypoxia or hypercapnia; J18.9 Pneumonia, unspecified organism; E87.0 Hyperosmolality and hypernatremia; I11.0 Hypertensive heart disease with heart failure; J98.11 Atelectasis; I44.1 Atrioventricular block, second degree; I73.9 Peripheral vascular disease, unspecified; R00.1 Bradycardia, unspecified; D72.829 Elevated white blood cell count, unspecified; I25.10 Atherosclerotic heart disease of native coronary artery without angina pectoris; M79.89 Other specified soft tissue disorders; E03.9 Hypothyroidism, unspecified; F41.9 Anxiety disorder, unspecified; E78.5 Hyperlipidemia, unspecified; M79.605 Pain in left leg; Z95.3 Presence of xenogenic heart valve; Z86.718 Personal history of other venous thrombosis and embolism; Z87.891 Personal history of nicotine dependence; Z86.73 Personal history of transient ischemic attack (TIA), and cerebral infarction without residual deficits
CPT/HCPCS: 36600; 71045; 71275; 74018; 75635; 78452; 80048; 80053; 81001; 82550; 82805; 83880; 84443; 84484; 85025; 85379; 85610; 85730; 87070; 87077; 87086; 87186; 87205; 87804; 93005; 93017; 93306; 93970; 94060; 94640; 94664; 96365; 96375; A9502; J1644; J1940; J1956; J2405; J2785; J2920; J2930; J7030; J7512; Q9967